=== PATIENT | female | born 1930 | race Caucasian/White ===

== ENCOUNTER 2017-10-21 11:26 | Inpatient (IN) | payer MEDICARE, BC ==
[2017-10-21] MEDS ORDERED: Sodium Chloride 0.9% 500 ML IV SCH ×2 (12:00→13:30)
--- NOTE | 2017-10-21 12:00 | EDM.PDOC ---
ED HPI GENERAL MEDICAL PROBLEM - General Chief Complaint: Respiratory Problem Stated Complaint: SHORTNESS OF BREATH Time Seen by Provider: 10/21/17 11:38 Source of Information: Reports: Patient, Family () History Limitations: Reports: No Limitations - History of Present Illness INITIAL COMMENTS - FREE TEXT/NARRATIVE: PATIENT IS AN 87-YEAR-OLD FEMALE WHO PRESENTS VIA EMS FOR COMPLAINT OF SHORTNESS OF BREATH. PATIENT STATES THAT SHORTNESS OF BREATH, NAUSEA, VOMITING , AND COUGH BEGAN YESTERDAY. PATIENT DENIES CHEST PAIN, ABDOMINAL PAIN, BOWEL CHANGES, OR FEVER. REVIEWED IN PREVIOUS DOCUMENTATION AND DISCUSSED WITH PATIENT IN DEPTH, PATIENT REQUESTS A DO NOT RESUSCITATE STATUS. Onset: Gradual Onset Date: 10/20/17 Duration: Day(s): Location: Reports: Chest Severity: Mild Improves with: Reports: None Worsens with: Reports: None Associated Symptoms: Reports: Cough, Fever/Chills, Nausea/Vomiting, Shortness of Breath - Related Data Allergies Allergy/AdvReac Type Severity Reaction Status Date / Time Iodinated Contrast- Oral and Allergy Severe Nausea and Verified 10/21/17 12:27 IV Dye Vomiting rosuvastatin calcium Allergy Unknown Other Verified 10/21/17 12:27 [From Crestor] Home Meds: Home Meds Omeprazole 20 mg PO DAILY@0700 07/06/15 [History] Sertraline HCl 100 mg PO DAILY 07/06/15 [History] traMADol [Take Home: traMADol 50 MG, 4 Tab Pack] 50 mg PO TID PRN 07/06/15 [ History] Metoprolol Tartrate 25 mg PO BID 07/08/15 [History] amLODIPine [Norvasc] 10 mg PO DAILY #90 tablet 07/09/15 [Rx] Albuterol [Ventolin HFA] 2 puff INH Q4H PRN 08/10/15 [History] Albuterol/Ipratropium [DuoNeb 3.0-0.5 MG/3 ML] 3 ml NEB Q6HRRT 08/10/15 [History ] Budesonide [Pulmicort] 0.5 mg IH BID 08/10/15 [History] Triazolam 0.25 mg PO BEDTIME PRN 08/29/16 [History] Fluticasone/Vilanterol [Breo Ellipta 100-25 MCG Inhalation Kit] 1 puff INH DAILY 10/21/17 [History] Past Medical History HEENT History: Reports: Cataract, Impaired Vision Cardiovascular History: Reports: Hypertension, SOB on Exertion Respiratory History: Reports: COPD, 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: Musculoskeletal History: Reports: Arthritis - Past Surgical History HEENT Surgical History: Reports: Cataract Surgery Neurological Surgical History: Reports: Other (See Below) Social & Family History - Family History Family Medical History: Noncontributory - Tobacco Use Smoking Status *Q: Light Tobacco Smoker Years of Tobacco use: 70 Packs/Tins Daily: 0.5 Used Tobacco, but Quit: No Month Tobacco Last Used: Oct Second Hand Smoke Exposure: No - Caffeine Use Caffeine Use: Reports: Coffee - Recreational Drug Use Recreational Drug Use: No ED ROS GENERAL - Review of Systems Review Of Systems: ROS reveals no pertinent complaints other than HPI. Constitutional: Reports: Chills, Fatigue HEENT: Reports: No Symptoms Respiratory: Reports: Shortness of Breath, Cough Cardiovascular: Reports: No Symptoms Endocrine: Reports: No Symptoms GI/Abdominal: Reports: No Symptoms : Reports: No Symptoms Musculoskeletal: Reports: No Symptoms Skin: Reports: No Symptoms Neurological: Reports: No Symptoms Psychiatric: Reports: No Symptoms Hematologic/Lymphatic: Reports: No Symptoms Immunologic: Reports: No Symptoms ED EXAM, GENERAL - Physical Exam Exam: See Below Exam Limited By: No Limitations General Appearance: Alert, WD/WN, No Apparent Distress Eye Exam: Bilateral Eye: Normal Inspection Nose: Normal Inspection, Normal Mucosa, No Blood Throat/Mouth: Normal Inspection, Normal Oropharynx, No Airway Compromise Head: Atraumatic, Normocephalic Neck: Normal Inspection, Supple, Non-Tender Respiratory/Chest: No Respiratory Distress, Rales, Rhonchi Cardiovascular: Tachycardia GI/Abdominal: Normal Bowel Sounds, Soft, Non-Tender, No Distention, No Mass Back Exam: Normal Inspection. No: CVA Tenderness (L), CVA Tenderness (R) Extremities: Normal Inspection, No Pedal Edema Neurological: Alert, Oriented, Normal Cognition Psychiatric: Normal Affect, Normal Mood Skin Exam: Warm, Dry, Intact, Normal Color, No Rash Lymphatic: No Adenopathy EKG INTERPRETATION EKG Date: 10/21/17 Time: 12:34 Rhythm: Other (SINUS TACHYCARDIA) Rate (Beats/Min): 112 [place]: Normal P-Wave: Present QRS: Normal ST-T: Normal QT: Normal Comparison: Change From Previous EKG EKG Interpretation Comments: SINUS TACHYCARDIA WITH PACS Course - Orders/Labs/Meds Orders: Active Orders 24 hr Category Date Time Status EKG Documentation Completion [RC] ASDIRECTED Care 10/21/17 11:40 Ordered Chest 2V [CR] Stat Exams 10/21/17 11:38 Ordered CBC WITH AUTO DIFF [HEME] Stat Lab 10/21/17 11:38 Ordered COMPREHENSIVE METABOLIC PN,CMP [CHEM] Stat Lab 10/21/17 11:38 Ordered INFLUENZA A+B AG SCREEN [RM] Stat Lab 10/21/17 11:40 Uncollected UA W/MICROSCOPIC [URIN] Stat Lab 10/21/17 11:38 Uncollected EKG 12 Lead [EK] Routine Ther 10/21/17 11:38 Ordered - Radiology Interpretation Free Text/Narrative:: Chest x-ray shows suspected right lower lobe pneumonia - Re-Assessments/Exams Free Text/Narrative Re-Assessment/Exam: 10/21/17 13:41 Patient afebrile, nontoxic appearing. Vital signs stable. Oxygen saturation 92 on 3 L nasal cannula. Patient giving initial dose of Rocephin and Zithromax. Discussed case with Daria Swenson, nurse practitioner from [facility] who will accept inpatient admission and follow. Departure - Departure Time of Disposition: 13:43 Disposition: Admitted As Inpatient 64 Condition: Fair Clinical Impression: Pneumonia Pneumonia Qualifiers: Pneumonia type: due to unspecified organism Laterality: right Lung location: lower lobe of lung Qualified Code(s): J18.1 - Lobar pneumonia, unspecified organism COPD (chronic obstructive pulmonary disease) Qualifiers: COPD type: unspecified COPD Qualified Code(s): J44.9 - Chronic obstructive pulmonary disease, unspecified - Discharge Information Referrals: PCP,Unknown [Primary Care Provider] - Forms: ED Department Discharge - My Orders Last 24 Hours: My Active Orders 10/21/17 11:38 Chest 2V [CR] Stat CBC WITH AUTO DIFF [HEME] Stat COMPREHENSIVE METABOLIC PN,CMP [CHEM] Stat UA W/MICROSCOPIC [URIN] Stat EKG 12 Lead [EK] Routine 10/21/17 11:40 EKG Documentation Completion [RC] ASDIRECTED INFLUENZA A+B AG SCREEN [RM] Stat - Assessment/Plan Last 24 Hours: My Active Orders 10/21/17 11:38 Chest 2V [CR] Stat CBC WITH AUTO DIFF [HEME] Stat COMPREHENSIVE METABOLIC PN,CMP [CHEM] Stat UA W/MICROSCOPIC [URIN] Stat EKG 12 Lead [EK] Routine 10/21/17 11:40 EKG Documentation Completion [RC] ASDIRECTED INFLUENZA A+B AG SCREEN [RM] Stat Assessment:: Pneumonia Plan: Inpatient admission to [facility]
[2017-10-21] MEDS ORDERED: cefTRIAXone 1 GM Vial IVPUSH ONE (13:37)
[2017-10-21] MEDS ORDERED: Azithromycin 500 MG in Sodium Chloride 0.9% 250 ML IV ONE (13:38)
--- NOTE | 2017-10-21 14:50 | PCM.HP ---
H&P History of Present Illness - General Date of Service: 10/21/17 Admit Problem/Dx: Admission Diagnosis/Problem Admission Diagnosis/Problem Pneumonia Source of Information: Patient, Old Records, Provider, RN History Limitations: Reports: No Limitations - History of Present Illness Initial Comments - Free Text/Narative: This is an 87 year old female who presented to the ER today via ambulance with complaints of cough and shortness of breath. The patient reports the symptoms started 2 days ago and have progressively worsened. Associated chest tightness, nausea and vomiting. Denies fever, chills, or abdominal pain. The patient's medical history is significant for panlobular emphysema, oxygen dependent, hypertension, hyperlipidemia, anxiety and depression, GERD, osteoporosis, macular degeneration, and breast cancer with left mastectomy. The patient lives alone, but reports she has children that check on her. She had workup performed in the ER indicative of a right lower lobe pneumonia with an elevated white blood cell count. She was admitted for treatment of this and further monitoring. - Related Data Allergies/Adverse Reactions: Allergies Allergy/AdvReac Type Severity Reaction Status Date / Time Iodinated Contrast- Oral and Allergy Severe Nausea and Verified 10/21/17 12:27 IV Dye Vomiting rosuvastatin calcium Allergy Unknown Other Verified 10/21/17 12:27 [From Crestor] Home Medications: Home Meds Omeprazole 20 mg PO DAILY@0700 07/06/15 [History] Sertraline HCl 100 mg PO DAILY 07/06/15 [History] traMADol [Take Home: traMADol 50 MG, 4 Tab Pack] 50 mg PO TID PRN 07/06/15 [ History] Metoprolol Tartrate 25 mg PO BID 07/08/15 [History] amLODIPine [Norvasc] 10 mg PO DAILY #90 tablet 07/09/15 [Rx] Albuterol [Ventolin HFA] 2 puff INH Q4H PRN 08/10/15 [History] Albuterol/Ipratropium [DuoNeb 3.0-0.5 MG/3 ML] 3 ml NEB Q6HRRT PRN 08/10/15 [ History] Budesonide [Pulmicort] 0.5 mg IH BID 08/10/15 [History] Triazolam 0.25 mg PO BEDTIME PRN 08/29/16 [History] Fluticasone/Vilanterol [Breo Ellipta 100-25 MCG Inhalation Kit] 1 puff INH DAILY 10/21/17 [History] Past Medical History HEENT History: Reports: Cataract, Impaired Vision Cardiovascular History: Reports: Hypertension, SOB on Exertion Respiratory History: Reports: COPD, SOB Gastrointestinal History: Reports: None 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: Musculoskeletal History: Reports: Arthritis Psychiatric History: Reports: Depression Hematologic History: Reports: Blood Transfusion(s) Immunologic History: Reports: Immunosuppression Oncologic (Cancer) History: Reports: Breast - Infectious Disease History Infectious Disease History: Reports: Chicken Pox, Measles, Mumps - Past Surgical History HEENT Surgical History: Reports: Cataract Surgery Cardiovascular Surgical History: Reports: None Respiratory Surgical History: Reports: None GI Surgical History: Reports: Appendectomy, Cholecystectomy, Colonoscopy Female Surgical History: Reports: Hysterectomy, Other (See Below) Other Female Surgeries/Procedures: bladder tuck Neurological Surgical History: Reports: Other (See Below) Oncologic Surgical History: Reports: Mastectomy Other Oncologic Surgeries/Procedures: left side Social & Family History - Family History Family Medical History: Noncontributory - Tobacco Use Smoking Status *Q: Light Tobacco Smoker Years of Tobacco use: 70 Packs/Tins Daily: 0.5 Used Tobacco, but Quit: No Month Tobacco Last Used: Oct Second Hand Smoke Exposure: No - Caffeine Use Caffeine Use: Reports: Coffee - Recreational Drug Use Recreational Drug Use: No H&P Review of Systems - Review of Systems: Review Of Systems: See Below General: Reports: Fever, Weakness, Fatigue, Decreased Appetite. Denies: Chills HEENT: Reports: Glasses, Headaches (intermittently). Denies: Ear Pain (ear popping), Sinus Congestion, Sore Throat Pulmonary: Reports: Shortness of Breath, Cough, Sputum, Other (chest tightness) . Denies: Wheezing Cardiovascular: Reports: Dyspnea on Exertion. Denies: Chest Pain, Edema, Lightheadedness Gastrointestinal: Reports: Abdominal Pain (RUQ), Decreased Appetite, Nausea, Vomiting. Denies: Constipation, Diarrhea Genitourinary: Denies: Dysuria, Frequency Neurological: Reports: Headache. Denies: Dizziness Exam - Exam Exam: See Below - Vital Signs Vital Signs: Last Vital Signs Temp 101.1 F H 10/21/17 13:45 Pulse 120 H 10/21/17 13:45 Resp 22 H 10/21/17 13:45 BP 154/75 H 10/21/17 13:45 Pulse Ox 92 L 10/21/17 13:45 Weight: 102 lb - Exam Quality Assessment: Supplemental Oxygen (5 liters per nasal cannula at 92%), DVT Prophylaxis (Will place on lovenox for score of 3). No: Urinary Catheter General: Alert, Oriented, Cooperative, Mild Distress HEENT: Conjunctiva Clear, Hearing Intact, Posterior Pharynx Clear. No: Mucosa Moist & [place] (extremely dry), TMs Clear (mild effusion to bilateral TMs, minimal cerumen in external canal) Neck: Supple Lungs: Decreased Breath Sounds (throughout lung murry), Crackles (RLL), Other ( tachypnea, mild). No: Wheezing Cardiovascular: Regular Rhythm, Normal S1, Normal S2, Tachycardia (110s) GI/Abdominal Exam: Normal Bowel Sounds, Soft, No Distention, No Mass, Tender ( RUQ-no gallbladder present per patient) Extremities: No Pedal Edema Skin: Warm, Dry Neurological: Normal Speech Neuro Extensive - Mental Status: Alert, Oriented x3 Psychiatric: Alert, Normal Affect, Anxious - Patient Data Lab Results Last 24 hrs: Laboratory Results - last 24 hr 10/21/17 Range/Units 13:47 Specimen Type Urinqcath Urine Color Yellow (YELLOW) Urine Appearance Slightly cloudy H (CLEAR) Urine pH 5.5 (5.0-9.0) Ur Specific [place] 1.025 (1.005-1.030) Urine Protein >=300 H (NEGATIVE) mg/dL Urine Glucose (UA) Negative (NEGATIVE) mg/dL Urine Ketones 15 H (NEGATIVE) mg/dL Urine Occult Blood Moderate H (NEGATIVE) Urine Nitrite Positive H (NEGATIVE) Urine Bilirubin Negative (NEGATIVE) Urine Urobilinogen 0.2 (0.2-1.0) E.U./dL Ur Leukocyte Esterase Negative (NEGATIVE) Urine RBC 0-5 /HPF Urine WBC 5-10 H /HPF Ur Epithelial Cells Few /LPF Urine Bacteria Many H (NONE TO FEW) /HPF Urine Yeast Few H (NEGATIVE) /HPF Result Diagrams: 10/21/17 11:51 10/21/17 11:51 EKG INTERPRETATION EKG Date: 10/21/17 Time: 12:33 Rhythm: Other (sinus tachycardia) Rate (Beats/Min): 112 [place]: Normal P-Wave: Present QRS: Normal ST-T: Normal QT: Normal Comparison: Change From Previous EKG EKG Interpretation Comments: PACs new finding *Q Meaningful Use (ADM) - VTE *Q VTE Criteria *Q: - Stroke *Q Stroke Criteria *Q: - AMI *Q AMI Criteria *Q: Problem List Initiated/Reviewed/Updated: Yes Orders Last 24hrs: Active Orders 24 hr Category Date Time Status Incentive Spirometry [RT Incentive Spirometry] [RC] Care 10/21/17 14:39 Ordered ASDIRECTED Intake and Output [RC] 1400,2200,0600 Care 10/21/17 14:37 Ordered RT Aerosol Therapy [RC] ASDIRECTED Care 10/21/17 14:38 Ordered Up With Assistance [RC] ASDIRECTED Care 10/21/17 14:36 Ordered Heart Healthy Diet [DIET] Diet 10/21/17 Dinner Ordered CULTURE BLOOD [BC] Stat Lab 10/21/17 14:38 Ordered CULTURE BLOOD [BC] Stat Lab 10/21/17 14:38 Ordered CULTURE SPUTUM + SMEAR [RM] Routine Lab 10/21/17 14:38 Uncollected CULTURE URINE [RM] Routine Lab 10/21/17 14:34 Uncollected Albuterol/Ipratropium [DuoNeb 3.0-0.5 MG/3 ML] Med 10/21/17 17:00 Ordered 3 ml NEB Q6HRRT Azithromycin [Zithromax] 500 mg Med 10/22/17 14:45 Ordered Sodium Chloride 0.9% [Normal Saline] 250 ml IV Q24H Budesonide [Pulmicort] Med 10/21/17 21:00 Ordered 0.5 mg INH BID Fluticasone/Vilanterol Med 10/22/17 09:00 Ordered 1 puff INH DAILY Metoprolol Tartrate [Lopressor] Med 10/21/17 21:00 Ordered 25 mg PO BID Omeprazole Med 10/22/17 07:00 Ordered 20 mg PO DAILY@0700 Sertraline HCl [Sertraline HCl] Med 10/22/17 09:00 Ordered 100 mg PO DAILY Sodium Chloride 0.9% @ 75 MLS/HR(1000ml) Med 10/21/17 14:45 Ordered Sodium Chloride 0.9% [Normal Saline] 1,000 ml IV ASDIRECTED Triazolam [Triazolam] Med 10/21/17 14:40 Ordered 0.25 mg PO BEDTIME PRN amLODIPine [Norvasc] Med 10/22/17 09:00 Ordered 10 mg PO DAILY cefTRIAXone [Rocephin] Med 10/22/17 14:45 Ordered 1 gm IVPUSH Q24H traMADol [Ultram] Med 10/21/17 14:40 Ordered 50 mg PO TID PRN Blood Culture x2 Reflex Set [OM.PC] Stat Oth 10/21/17 14:38 Ordered Medication Orders Albuterol/Ipratropium (Duoneb 3.0-0.5 Mg/3 Ml) 3 ml NEB Q6HRRT [facility] Amlodipine Besylate (Norvasc) 10 mg PO DAILY [facility] Budesonide (Pulmicort) 0.5 mg INH BID [facility] Ceftriaxone Sodium (Rocephin) 1 gm IVPUSH Q24H [facility] Sodium Chloride (Normal Saline) 500 mls @ 500 mls/hr IV ASDIRECTED [facility]STAL Last Admin: 10/21/17 12:16 Dose: 500 mls/hr Sodium Chloride (Normal Saline) 500 mls @ 500 mls/hr IV .BOLUS CRYSTAL Last Admin: 10/21/17 13:29 Dose: 500 mls/hr Azithromycin 500 mg/ Sodium (Chloride) 250 mls @ 250 mls/hr IV Q24H [facility] Sodium Chloride (Normal Saline) 1,000 mls @ 75 mls/hr IV ASDIRECTED [facility] Metoprolol Tartrate (Lopressor) 25 mg PO BID [facility] Non-Formulary Medication (Fluticasone/Vilanterol) 1 puff INH DAILY [facility] Non-Formulary Medication (Sertraline Hcl [Sertraline Hcl]) 100 mg PO DAILY [facility] Non-Formulary Medication (Triazolam [Triazolam]) 0.25 mg PO BEDTIME PRN PRN Reason: Insomnia Omeprazole (Omeprazole) 20 mg PO DAILY@0700 [facility] Tramadol HCl (Ultram) 50 mg PO TID PRN PRN Reason: Pain Assessment/Plan Comment:: PRIMARY ASSESSMENT/PLAN: Community acquired right lower lobe pneumonia. Chest x-ray demonstrated "right lower lobe parenchymal opacification superimposed on advanced changes of chronic obstructive disease." WBC 15.3 with left shift. Influenza negative. Given underlying emphysema and possible pseuduomonas risk will change antibiotic to levaquin 750 mg IV every 48 hours due to CrCl of 31. DuoNebs QID. Incentive spirometry. Oxygen to keep saturations >90%. Sputum and blood cultures x 2 ordered. Lactic acid pending. qSOFA score 2-high risk. CBC in AM. Panlobular emphysema. Does not appear to be in acute exacerbation of this. No wheezing at this time, so will hold off on steroids. Continue Breo Ellipta daily and pulmicort BID. Chronic 02 therapy. Dehydration, moderate. Na 130, creatinine 0.89, BUN 23. Has received 2 500 mL normal saline boluses in ER. Will continue NS at 75 mL/hr. Accurate I & O. Repeat BMP in AM. Sinus tachycardia. Place on telemetry for monitoring. Most likely related to dehydration and fever. Asymptomatic bacteruria. UA revealed moderate blood, nitrites and many bacteria along with yeast. Urine culture pending. SECONDARY ASSESSMENT/PLAN: Hypertension. Continue norvasc and lopressor. History of hyperlipidemia. Not on medication for this. LDL 89 (2015). Anxiety and depression. Continue zoloft. GERD. Continue omeprazole. History of osteoporosis. Macular degeneration. History of breast cancer, s/p left mastectomy. Chronic low back pain. Diffuse DJD/osteoarthritis. Tramadol PRN. Insomnia, primary. Continue triazolam PRN. DVT prophylaxis. Start lovenox. Overall treatment plan: Monitor heart rate and rhythm with cardiac monitoring. Continue with IV fluids, antibiotics, and nebulizers. Continue to monitor for declining respiratory status and/or hemodynamic instability.
[2017-10-21] MEDS: Sodium Chloride 0.9% 1,000 ML IV SCH ×2 (16:17→21:27)
[2017-10-21] MEDS: Enoxaparin 30 MG/0.3 ML Syringe SUBCUT SCH (16:19)
[2017-10-21] MEDS: Albuterol/Ipratropium 3.0-0.5 MG/3 ML Neb Soln NEB SCH ×2 (17:17→22:47)
[2017-10-21] MEDS: traMADol 50 MG Tab PO PRN (21:21)
[2017-10-21] MEDS: Budesonide 0.5 MG/2 ML Neb Susp INH SCH (21:21)
[2017-10-21] MEDS: Metoprolol Tartrate 25 MG Tab PO SCH (21:22)
[2017-10-22] MEDS: Albuterol/Ipratropium 3.0-0.5 MG/3 ML Neb Soln NEB SCH ×4 (06:07→22:33)
[2017-10-22] MEDS ORDERED: Omeprazole 20 MG Cap.CR PO SCH (07:00)
[2017-10-22] MEDS: Budesonide 0.5 MG/2 ML Neb Susp INH SCH ×2 (07:46→20:24)
[2017-10-22 07:56] LABS: CHLORIDE,CL 101 mmol/L (98-115); SODIUM,NA 136 mmol/L (136-145)
[2017-10-22] MEDS: Piperacillin/Tazobactam/Dext 3.375 GM in Premix Bag 1 BAG IV SCH ×3 (08:07→20:24)
[2017-10-22] MEDS: Enoxaparin 30 MG/0.3 ML Syringe SUBCUT SCH (08:09)
[2017-10-22] MEDS: VILANTEROL IH SCH (08:09)
[2017-10-22] MEDS: [UNRECOGNIZED DRUG - OTHER] IH SCH (08:09)
[2017-10-22] MEDS: amLODIPine 5 MG Tab PO SCH (08:10)
[2017-10-22] MEDS: Metoprolol Tartrate 25 MG Tab PO SCH ×2 (08:10→20:24)
[2017-10-22] MEDS: Sertraline 50 MG Tab PO SCH (08:10)
[2017-10-22] MEDS ORDERED: Levofloxacin/Dextrose 5%-Water 250 MG in Premix Bag 1 BAG IV SCH ×4 (09:00)
[2017-10-22] MEDS ORDERED: Levofloxacin/Dextrose 5%-Water 500 MG in Premix Bag 1 BAG IV SCH ×4 (09:00)
--- NOTE | 2017-10-22 10:35 | PCM.PN ---
- General Info Date of Service: 10/22/17 Subjective Update: Patient reports she feels about the same as yesterday. Functional Status: Reports: Pain Controlled, Tolerating Diet, Ambulating, Urinating, Incentive Spirometry - Review of Systems General: Reports: Weakness, Fatigue, Malaise. Denies: Fever, Chills HEENT: Reports: Glasses, Sinus Congestion. Denies: Headaches Pulmonary: Reports: Pleuritic Chest Pain, Cough, Sputum. Denies: Shortness of Breath, Wheezing Cardiovascular: Reports: Dyspnea on Exertion. Denies: Chest Pain, Edema, Lightheadedness Gastrointestinal: Reports: Nausea. Denies: Abdominal Pain, Diarrhea, Vomiting Neurological: Denies: Headache Psychiatric: Reports: Anxiety - Patient Data Vitals - Most Recent: Last Vital Signs Temp 98.4 F 10/22/17 06:23 Pulse 114 H 10/22/17 08:10 Resp 32 H 10/22/17 06:23 BP 157/82 H 10/22/17 08:10 Pulse Ox 94 L 10/22/17 07:50 Weight - Most Recent: 102 lb I&O - Last 24 Hours: Intake & Output 10/21/17 10/22/17 10/22/17 22:59 06:59 14:59 Intake Total 1384 809 Balance 1384 809 Lab Results Last 24 Hours: Laboratory Results - last 24 hr 10/21/17 10/21/17 10/22/17 Range/Units 13:47 15:40 07:25 WBC 14.0 H (5.0-10.0) 10^3/uL RBC 3.71 L (3.80-5.50) 10^6/uL Hgb 10.1 L (12.0-16.0) g/dL Hct 32.4 L (37.0-47.0) % MCV 87.1 (82.0-92.0) fL MCH 27.2 (27.0-31.0) pg MCHC 31.2 L (32.0-36.0) g/dL RDW 13.3 (11.5-14.5) % Plt Count 307 H (150-300) 10^3/uL MPV 8.6 (7.4-10.4) fL Neut % (Auto) 83.5 H (50.0-70.0) % Lymph % (Auto) 8.0 L (20.0-40.0) % [place] % (Auto) 7.7 (2.0-8.0) % Eos % (Auto) 0.3 L (1.0-3.0) % Baso % (Auto) 0.5 (0.0-1.0) % Neut # (Auto) 11.7 H (2.5-7.0) 10^3/uL Lymph # (Auto) 1.1 (1.0-4.0) 10^3/uL [place] # (Auto) 1.1 H (0.1-0.8) 10^3/uL Eos # (Auto) 0.0 L (0.1-0.3) 10^3/uL Baso # (Auto) 0.1 (0.0-0.1) 10^3/uL Sodium (136-145) mmol/L Potassium (3.3-5.3) mmol/L Chloride (98-115) mmol/L Carbon Dioxide (21.0-32.0) mmol/L BUN (6-25) mg/dL Creatinine (0.51-1.17) mg/dL Est Cr Clr Drug Dosing mL/min Estimated GFR (MDRD) mL/min Glucose (70-110) mg/dL Lactic Acid 1.6 (0.4-2.0) mmol/L Calcium (8.7-10.3) mg/dL Specimen Type [place] Urine Color Yellow (YELLOW) Urine Appearance Slightly cloudy H (CLEAR) Urine pH 5.5 (5.0-9.0) Ur Specific [place] 1.025 (1.005-1.030) Urine Protein >=300 H (NEGATIVE) mg/dL Urine Glucose (UA) Negative (NEGATIVE) mg/dL Urine Ketones 15 H (NEGATIVE) mg/dL Urine Occult Blood Moderate H (NEGATIVE) Urine Nitrite Positive H (NEGATIVE) Urine Bilirubin Negative (NEGATIVE) Urine Urobilinogen 0.2 (0.2-1.0) E.U./dL Ur Leukocyte Esterase Negative (NEGATIVE) Urine RBC 0-5 /HPF Urine WBC 5-10 H /HPF Ur Epithelial Cells Few /LPF Urine Bacteria Many H (NONE TO FEW) /HPF Urine Yeast Few H (NEGATIVE) /HPF 10/22/17 Range/Units 07:25 WBC (5.0-10.0) 10^3/uL RBC (3.80-5.50) 10^6/uL Hgb (12.0-16.0) g/dL Hct (37.0-47.0) % MCV (82.0-92.0) fL MCH (27.0-31.0) pg MCHC (32.0-36.0) g/dL RDW (11.5-14.5) % Plt Count (150-300) 10^3/uL MPV (7.4-10.4) fL Neut % (Auto) (50.0-70.0) % Lymph % (Auto) (20.0-40.0) % [place] % (Auto) (2.0-8.0) % Eos % (Auto) (1.0-3.0) % Baso % (Auto) (0.0-1.0) % Neut # (Auto) (2.5-7.0) 10^3/uL Lymph # (Auto) (1.0-4.0) 10^3/uL [place] # (Auto) (0.1-0.8) 10^3/uL Eos # (Auto) (0.1-0.3) 10^3/uL Baso # (Auto) (0.0-0.1) 10^3/uL Sodium 136 (136-145) mmol/L Potassium 3.4 (3.3-5.3) mmol/L Chloride 101 (98-115) mmol/L Carbon Dioxide 19.6 L (21.0-32.0) mmol/L BUN 16 (6-25) mg/dL Creatinine 0.64 (0.51-1.17) mg/dL Est Cr Clr Drug Dosing 43.53 mL/min Estimated GFR (MDRD) > 60 mL/min Glucose 137 H (70-110) mg/dL Lactic Acid (0.4-2.0) mmol/L Calcium 8.1 L (8.7-10.3) mg/dL Specimen Type Urine Color (YELLOW) Urine Appearance (CLEAR) Urine pH (5.0-9.0) Ur Specific [place] (1.005-1.030) Urine Protein (NEGATIVE) mg/dL Urine Glucose (UA) (NEGATIVE) mg/dL Urine Ketones (NEGATIVE) mg/dL Urine Occult Blood (NEGATIVE) Urine Nitrite (NEGATIVE) Urine Bilirubin (NEGATIVE) Urine Urobilinogen (0.2-1.0) E.U./dL Ur Leukocyte Esterase (NEGATIVE) Urine RBC /HPF Urine WBC /HPF Ur Epithelial Cells /LPF Urine Bacteria (NONE TO FEW) /HPF Urine Yeast (NEGATIVE) /HPF [place] Results Last 24 Hours: Microbiology 10/21/17 16:35 Gram Stain - Final Sputum - Expectorated Med Orders - Current: Current Medications Albuterol/Ipratropium (Duoneb 3.0-0.5 Mg/3 Ml) 3 ml NEB Q6HRRT [facility] Last Admin: 10/22/17 06:07 Dose: 3 ml Amlodipine Besylate (Norvasc) 10 mg PO DAILY [facility] Last Admin: 10/22/17 08:10 Dose: 10 mg Budesonide (Pulmicort) 0.5 mg INH BIDRT [facility] Last Admin: 10/22/17 07:46 Dose: 0.5 mg Calcium Carbonate/Glycine (Tums) 500 mg PO BID [facility] Enoxaparin Sodium (Lovenox) 30 mg SUBCUT DAILY [facility] Last Admin: 10/22/17 08:09 Dose: 30 mg Sodium Chloride (Normal Saline) 500 mls @ 500 mls/hr IV ASDIRECTED [facility] Last Admin: 10/21/17 12:16 Dose: 500 mls/hr Sodium Chloride (Normal Saline) 500 mls @ 500 mls/hr IV .BOLUS [facility] Last Admin: 10/21/17 13:29 Dose: 500 mls/hr Sodium Chloride (Normal Saline) 1,000 mls @ 75 mls/hr IV ASDIRECTED [facility] Last Admin: 10/21/17 21:27 Dose: 75 mls/hr Levofloxacin/Dextrose 250 mg/ (Premix) 50 mls @ 50 mls/hr IV Q48H [facility] Last Admin: 10/22/17 09:40 Dose: 50 mls/hr Levofloxacin/Dextrose 500 mg/ (Premix) 100 mls @ 100 mls/hr IV Q48H [facility] Piperacillin/Tazobactam/ (Dextrose 3.375 gm/ Premix) 50 mls @ 100 mls/hr IV Q6H [facility] Last Admin: 10/22/17 08:07 Dose: 100 mls/hr Methylprednisolone Sodium Succinate (Solu-Medrol) 60 mg IVPUSH DAILY [facility] Metoprolol Tartrate (Lopressor) 25 mg PO BID [facility] Last Admin: 10/22/17 08:10 Dose: 25 mg Omeprazole (Omeprazole) 20 mg PO DAILY@0700 [facility] Last Admin: 10/22/17 06:07 Dose: 20 mg Sertraline HCl (Zoloft) 100 mg PO DAILY [facility] Last Admin: 10/22/17 08:10 Dose: 100 mg Tramadol HCl (Ultram) 50 mg PO TID PRN PRN Reason: Pain Last Admin: 10/21/17 21:21 Dose: 50 mg Triazolam (Triazolam) 0.25 mg PO BEDTIME PRN PRN Reason: INSOMNIA Last Admin: 10/21/17 21:21 Dose: 0.25 mg Discontinued Medications Ceftriaxone Sodium (Rocephin) 1 gm IVPUSH ONETIME ONE Stop: 10/21/17 13:38 Last Admin: 10/21/17 13:56 Dose: 1 gm Ceftriaxone Sodium (Rocephin) 1 gm IVPUSH Q24H [facility] Azithromycin 500 mg/ Sodium (Chloride) 250 mls @ 250 mls/hr IV ONETIME ONE Stop: 10/21/17 14:37 Last Admin: 10/21/17 14:32 Dose: 250 mls/hr Azithromycin 500 mg/ Sodium (Chloride) 250 mls @ 250 mls/hr IV Q24H [facility] Levofloxacin/Dextrose 250 mg/ (Premix) 50 mls @ 50 mls/hr IV Q24H [facility] Levofloxacin/Dextrose 500 mg/ (Premix) 100 mls @ 100 mls/hr IV Q24H [facility] - Exam Quality Assessment: Supplemental Oxygen (5 liters per nasal cannula 90%), DVT Prophylaxis (Lovenox). No: Urine Catheter General: Alert, Oriented, Cooperative, Mild Distress Lungs: Decreased Breath Sounds (throughout), Crackles (coarse crackles throughout except [place]), Wheezing (RLL), Other (effort mildly labored with retractions) Cardiovascular: Regular Rhythm, No Murmurs, Tachycardia (100s) GI/Abdominal Exam: Normal Bowel Sounds, Soft, Non-Tender, No Distention, No Mass Extremities: No Pedal Edema Skin: Warm, Dry Neurological: Normal Speech Psy/Mental Status: Alert, Normal Affect, Anxious - Problem List Review Problem List Initiated/Reviewed/Updated: Yes - My Orders Last 24 Hours: My Active Orders 10/23/17 05:11 CBC WITH AUTO DIFF [HEME] AM COMPREHENSIVE METABOLIC PN,CMP [CHEM] AM 10/21/17 13:47 CULTURE URINE [RM] Routine 10/21/17 14:36 Up With Assistance [RC] ASDIRECTED 10/21/17 14:37 Intake and Output [RC] 1400,2200,0600 10/21/17 14:38 RT Aerosol Therapy [RC] ASDIRECTED Blood Culture x2 Reflex Set [OM.PC] Stat 10/21/17 14:39 Incentive Spirometry [RT Incentive Spirometry] [RC] ASDIRECTED 10/21/17 14:40 traMADol [Ultram] 50 mg PO TID PRN 10/21/17 14:45 Sodium Chloride 0.9% [Normal Saline] 1,000 ml IV ASDIRECTED 10/21/17 15:00 Enoxaparin [Lovenox] 30 mg SUBCUT DAILY Triazolam 0.25 mg PO BEDTIME PRN 10/21/17 15:13 Telemetry Monitoring [Cardiac Monitoring] [RC] 0700,1100,1500,1900,2300,0300 10/21/17 15:40 CULTURE BLOOD [BC] Stat 10/21/17 16:00 CULTURE BLOOD [BC] Stat 10/21/17 16:35 CULTURE SPUTUM + SMEAR [RM] Routine 10/21/17 17:00 Albuterol/Ipratropium [DuoNeb 3.0-0.5 MG/3 ML] 3 ml NEB Q6HRRT 10/21/17 20:00 Budesonide [Pulmicort] 0.5 mg INH BIDRT 10/21/17 21:00 Metoprolol Tartrate [Lopressor] 25 mg PO BID 10/21/17 Dinner Heart Healthy Diet [DIET] 10/22/17 07:00 Omeprazole 20 mg PO DAILY@0700 10/22/17 07:25 CRP [C-REACTIVE PROTEIN] [CHEM] Routine 10/22/17 09:00 Fluticasone/Vilanterol [Breo Ellipta 100-25 MCG Inhalation Kit] 0 each IH DAILY Levofloxacin/Dextrose 5%-Water [Levaquin in D5W 250 MG/50 ML] 250 mg Premix Bag 1 bag IV Q48H Levofloxacin/Dextrose 5%-Water [Levaquin in D5W 500 MG/100 ML] 500 mg Premix Bag 1 bag IV Q48H Piperacillin/Tazobactam/Dext [Zosyn in Dextrose Iso-Osmotic 3.375 GM] 3.375 gm Premix Bag 1 bag IV Q6H Sertraline [Zoloft] 100 mg PO DAILY amLODIPine [Norvasc] 10 mg PO DAILY 10/22/17 10:15 Calcium Carbonate [Tums] 500 mg PO BID methylPREDNISolone Sod Succ [Solu-MEDROL] 60 mg IVPUSH DAILY - Plan Plan:: PRIMARY ASSESSMENT/PLAN: Community acquired right lower lobe pneumonia, present on admission, pseudomonas risk. WBC improved slightly to 14.0 with left shift. Continue levaquin 750 mg IV q48 hours. Initiate zosyn 3.375 gm IV every 6 hours. Continue duonebs and incentive spirometry. Continue oxygen. Sputum culture pending, gram stain reveals gram + cocci with yeast. Blood cultures pending. Lactic acid 1.6. CRP pending. CURB score 2-moderate risk. qSOFA score 1-not high risk. CBC in AM. Panlobular emphysema with acute exacerbation. Add solumedrol 60 mg IV daily. Continue Breo Ellipta and pulmicort BID. Chronic 02 therapy. Requiring increased need at present. Dehydration, moderate, improving. Na 136, creatinine 0.64. Continue NS at 75 mL/ hr. Accurate I & O. Repeat CMP in AM. Sinus tachycardia, slight improvement. Continue telemetry. Will wait until afternoon to adjust her lopressor dose. BP adequate at present. She is afebrile and hydration status is improving. Asymptomatic bacteruria. UA revealed moderate blood, nitrites and many bacteria along with yeast. Urine culture pending. Hypocalcemia. Corrected calcium 8.2. Add calcium carbonate 500 mg BID. CMP in AM. SECONDARY ASSESSMENT/PLAN: Hypertension. Continue norvasc and lopressor. Due to tachycardia and adequate BP will not adjust lopressor dose at this time. History of hyperlipidemia. Not on medication for this. LDL 89 (2015). Anxiety and depression. Continue zoloft. GERD. Continue omeprazole. History of osteoporosis. Macular degeneration. History of breast cancer, s/p left mastectomy. Chronic low back pain. Diffuse DJD/osteoarthritis. Tramadol PRN. Insomnia, primary. Continue triazolam PRN. DVT prophylaxis. On lovenox. Overall treatment plan: Continue IV fluids and antibiotics. Adding IV solumedrol today. Continue to monitor hemodynamic and respiratory status.
[2017-10-22] MEDS: Calcium Carbonate 500 MG Tab.Chew PO SCH ×2 (10:58→20:24)
[2017-10-22] MEDS: methylPREDNISolone Sodium Succinate 125 MG/2 ML SDV IVPUSH SCH (10:58)
[2017-10-22] MEDS ORDERED: Ondansetron 4 MG/2 ML SDV IVPUSH ONE (12:45)
[2017-10-22] MEDS ORDERED: Azithromycin 500 MG in Sodium Chloride 0.9% 250 ML IV SCH (13:00)
[2017-10-22] MEDS: Acetaminophen 325 MG Tab PO PRN (13:02)
[2017-10-22] MEDS: Sodium Chloride 0.9% 1,000 ML IV SCH (13:04)
[2017-10-22] MEDS ORDERED: cefTRIAXone 1 GM Vial IVPUSH SCH (14:00)
[2017-10-22] MEDS: traMADol 50 MG Tab PO PRN (20:33)
[2017-10-23] MEDS: Piperacillin/Tazobactam/Dext 3.375 GM in Premix Bag 1 BAG IV SCH ×4 (03:01→20:21)
[2017-10-23] MEDS: Sodium Chloride 0.9% 1,000 ML IV SCH ×2 (03:01→22:21)
[2017-10-23] MEDS: Albuterol/Ipratropium 3.0-0.5 MG/3 ML Neb Soln NEB SCH ×4 (06:30→22:30)
[2017-10-23] MEDS: Budesonide 0.5 MG/2 ML Neb Susp INH SCH ×2 (07:57→20:19)
[2017-10-23] MEDS: Pantoprazole 40 MG Vial IVPUSH SCH (08:05)
[2017-10-23 08:10] LABS: CHLORIDE,CL 100 mmol/L (98-115); SODIUM,NA 134 mmol/L (136-145)
[2017-10-23] MEDS: VILANTEROL IH SCH (08:11)
[2017-10-23] MEDS: [UNRECOGNIZED DRUG - OTHER] IH SCH (08:11)
[2017-10-23] MEDS: amLODIPine 5 MG Tab PO SCH (08:12)
[2017-10-23] MEDS: Enoxaparin 30 MG/0.3 ML Syringe SUBCUT SCH (08:12)
[2017-10-23] MEDS: Metoprolol Tartrate 25 MG Tab PO SCH ×2 (08:13→20:28)
[2017-10-23] MEDS: methylPREDNISolone Sodium Succinate 125 MG/2 ML SDV IVPUSH SCH (08:14)
[2017-10-23] MEDS: Calcium Carbonate 500 MG Tab.Chew PO SCH ×2 (08:14→20:17)
[2017-10-23] MEDS: Sertraline 50 MG Tab PO SCH (08:14)
[2017-10-23] MEDS ORDERED: Ondansetron 4 MG/2 ML SDV IVPUSH PRN (10:04)
[2017-10-23] MEDS ORDERED: Metoprolol Tartrate 25 MG Tab PO ONE (10:05)
--- NOTE | 2017-10-23 10:39 | PCM.PN ---
- General Info Date of Service: 10/23/17 Subjective Update: Patient reports she is feeling some better. Her main reported symptom is intermittent generalized abdominal aching with nausea. She had a one time dose of zofran yesterday with some relief. Functional Status: Reports: Tolerating Diet, Urinating, Incentive Spirometry - Review of Systems General: Reports: Weakness, Fatigue, Malaise. Denies: Fever, Chills HEENT: Reports: Glasses. Denies: Headaches Pulmonary: Reports: Shortness of Breath (improving), Cough, Sputum (green phlegm ). Denies: Pleuritic Chest Pain Cardiovascular: Denies: Chest Pain, Edema Gastrointestinal: Reports: Abdominal Pain (intermittent, generalized), Decreased Appetite, Nausea. Denies: Constipation, Diarrhea, Vomiting Neurological: Denies: Headache Psychiatric: Denies: Anxiety - Patient Data Vitals - Most Recent: Last Vital Signs Temp 98.2 F 10/23/17 06:34 Pulse 114 H 10/23/17 08:13 Resp 26 H 10/23/17 06:34 BP 152/75 H 10/23/17 08:13 Pulse Ox 92 L 10/23/17 06:34 Weight - Most Recent: 102 lb I&O - Last 24 Hours: Intake & Output 10/22/17 10/23/17 10/23/17 22:59 06:59 14:59 Intake Total 1126 664 Output Total 900 Balance 1126 -236 Lab Results Last 24 Hours: Laboratory Results - last 24 hr 10/22/17 10/23/17 10/23/17 Range/Units 07:25 07:20 07:20 WBC 14.7 H (5.0-10.0) 10^3/uL RBC 3.44 L (3.80-5.50) 10^6/uL Hgb 9.7 L (12.0-16.0) g/dL Hct 29.8 L (37.0-47.0) % MCV 86.8 (82.0-92.0) fL MCH 28.1 (27.0-31.0) pg MCHC 32.4 (32.0-36.0) g/dL RDW 13.5 (11.5-14.5) % Plt Count 342 H (150-300) 10^3/uL MPV 8.5 (7.4-10.4) fL Neut % (Auto) 85.6 H (50.0-70.0) % Lymph % (Auto) 7.5 L (20.0-40.0) % [place] % (Auto) 6.3 (2.0-8.0) % Eos % (Auto) 0.1 L (1.0-3.0) % Baso % (Auto) 0.5 (0.0-1.0) % Neut # (Auto) 12.6 H (2.5-7.0) 10^3/uL Lymph # (Auto) 1.1 (1.0-4.0) 10^3/uL [place] # (Auto) 0.9 H (0.1-0.8) 10^3/uL Eos # (Auto) 0.0 L (0.1-0.3) 10^3/uL Baso # (Auto) 0.1 (0.0-0.1) 10^3/uL Sodium 134 L (136-145) mmol/L Potassium 3.7 (3.3-5.3) mmol/L Chloride 100 (98-115) mmol/L Carbon Dioxide 23.7 (21.0-32.0) mmol/L BUN 11 (6-25) mg/dL Creatinine 0.66 (0.51-1.17) mg/dL Est Cr Clr Drug Dosing 42.21 mL/min Estimated GFR (MDRD) > 60 mL/min Glucose 163 H (70-110) mg/dL Calcium 8.5 L (8.7-10.3) mg/dL Total Bilirubin 0.5 (0.2-1.0) mg/dL AST 45 H (15-37) U/L ALT 29 (12-78) U/L Alkaline Phosphatase 68 (46-116) IU/L C-Reactive Protein 27.0 H (0.0-0.9) mg/dL Total Protein 7.5 (6.4-8.2) g/dL Albumin 2.16 L (3.00-4.80) g/dL [place] Results Last 24 Hours: Microbiology 10/21/17 13:47 Urine Culture - Final Urine, Clean Catch Escherichia Coli 10/21/17 16:35 Gram Stain - Final Sputum - Expectorated Sputum Culture - Final 10/21/17 16:00 Aerobic Blood Culture - Preliminary Blood - Venous - Lab Draw NO GROWTH AFTER 1 DAY Anaerobic Blood Culture - Preliminary NO GROWTH AFTER 1 DAY 10/21/17 15:40 Aerobic Blood Culture - Preliminary Blood - Venous NO GROWTH AFTER 1 DAY Anaerobic Blood Culture - Preliminary NO GROWTH AFTER 1 DAY Med Orders - Current: Current Medications Acetaminophen (Tylenol) 650 mg PO Q4H PRN PRN Reason: pain , fever Last Admin: 10/22/17 13:02 Dose: 650 mg Albuterol/Ipratropium (Duoneb 3.0-0.5 Mg/3 Ml) 3 ml NEB Q6HRRT [facility] Last Admin: 10/23/17 06:30 Dose: 3 ml Amlodipine Besylate (Norvasc) 10 mg PO DAILY [facility] Last Admin: 10/23/17 08:12 Dose: 10 mg Budesonide (Pulmicort) 0.5 mg INH BIDRT [facility] Last Admin: 10/23/17 07:57 Dose: 0.5 mg Calcium Carbonate/Glycine (Tums) 500 mg PO BID [facility] Last Admin: 10/23/17 08:14 Dose: 500 mg Enoxaparin Sodium (Lovenox) 30 mg SUBCUT DAILY [facility] Last Admin: 10/23/17 08:12 Dose: 30 mg Sodium Chloride (Normal Saline) 1,000 mls @ 50 mls/hr IV ASDIRECTED [facility] Last Admin: 10/23/17 03:01 Dose: 75 mls/hr Levofloxacin/Dextrose 250 mg/ (Premix) 50 mls @ 50 mls/hr IV Q48H [facility] Last Admin: 10/22/17 09:40 Dose: 50 mls/hr Levofloxacin/Dextrose 500 mg/ (Premix) 100 mls @ 100 mls/hr IV Q48H [facility] Last Admin: 10/22/17 10:57 Dose: 100 mls/hr Piperacillin/Tazobactam/ (Dextrose 3.375 gm/ Premix) 50 mls @ 100 mls/hr IV Q6H [facility] Last Admin: 10/23/17 08:49 Dose: 100 mls/hr Methylprednisolone Sodium Succinate (Solu-Medrol) 60 mg IVPUSH DAILY [facility] Last Admin: 10/23/17 08:14 Dose: 60 mg Metoprolol Tartrate (Lopressor) 12.5 mg PO ONETIME ONE Stop: 10/23/17 10:06 Metoprolol Tartrate (Lopressor) 37.5 mg PO BID [facility] Ondansetron HCl (Zofran) 4 mg IVPUSH Q6H PRN PRN Reason: Nausea/Vomiting Pantoprazole Sodium (Protonix Iv) 40 mg IVPUSH DAILY [facility] Last Admin: 10/23/17 08:05 Dose: 40 mg Sertraline HCl (Zoloft) 100 mg PO DAILY [facility] Last Admin: 10/23/17 08:14 Dose: 100 mg Tramadol HCl (Ultram) 50 mg PO TID PRN PRN Reason: Pain Last Admin: 10/22/17 20:33 Dose: 50 mg Triazolam (Triazolam) 0.25 mg PO BEDTIME PRN PRN Reason: INSOMNIA Last Admin: 10/22/17 20:33 Dose: 0.25 mg Discontinued Medications Ceftriaxone Sodium (Rocephin) 1 gm IVPUSH ONETIME ONE Stop: 10/21/17 13:38 Last Admin: 10/21/17 13:56 Dose: 1 gm Ceftriaxone Sodium (Rocephin) 1 gm IVPUSH Q24H [facility] Sodium Chloride (Normal Saline) 500 mls @ 500 mls/hr IV ASDIRECTED [facility] Last Admin: 10/21/17 12:16 Dose: 500 mls/hr Sodium Chloride (Normal Saline) 500 mls @ 500 mls/hr IV .BOLUS [facility] Last Admin: 10/21/17 13:29 Dose: 500 mls/hr Azithromycin 500 mg/ Sodium (Chloride) 250 mls @ 250 mls/hr IV ONETIME ONE Stop: 10/21/17 14:37 Last Admin: 10/21/17 14:32 Dose: 250 mls/hr Azithromycin 500 mg/ Sodium (Chloride) 250 mls @ 250 mls/hr IV Q24H [facility] Levofloxacin/Dextrose 250 mg/ (Premix) 50 mls @ 50 mls/hr IV Q24H [facility] Levofloxacin/Dextrose 500 mg/ (Premix) 100 mls @ 100 mls/hr IV Q24H [facility] Metoprolol Tartrate (Lopressor) 25 mg PO BID [facility] Last Admin: 10/23/17 08:13 Dose: 25 mg Omeprazole (Omeprazole) 20 mg PO DAILY@0700 [facility] Last Admin: 10/22/17 06:07 Dose: 20 mg Ondansetron HCl (Zofran) 4 mg IVPUSH ONETIME ONE Stop: 10/22/17 12:46 Last Admin: 10/22/17 12:59 Dose: 4 mg - Exam Quality Assessment: Supplemental Oxygen (5 liters per nasal cannula 92%), DVT Prophylaxis (lovenox). No: Urine Catheter General: Alert, Oriented, Cooperative, No Acute Distress Lungs: Normal Respiratory Effort, Decreased Breath Sounds (throughout lung murry), Crackles (RLL). No: Wheezing Cardiovascular: Regular Rhythm, No Murmurs, Tachycardia (90-100s) GI/Abdominal Exam: Normal Bowel Sounds, Soft, No Distention, No Mass, Tender ( generalized) Extremities: No Pedal Edema Skin: Warm, Dry Neurological: Normal Speech Psy/Mental Status: Alert, Normal Affect, Normal Mood. No: Anxious - Problem List Review Problem List Initiated/Reviewed/Updated: Yes - My Orders Last 24 Hours: My Active Orders 10/23/17 09:00 Pantoprazole [ProTONIX IV] 40 mg IVPUSH DAILY 10/23/17 10:04 Ondansetron [Zofran] 4 mg IVPUSH Q6H PRN 10/23/17 10:05 Metoprolol Tartrate [Lopressor] 12.5 mg PO ONETIME ONE 10/23/17 21:00 Metoprolol Tartrate [Lopressor] 37.5 mg PO BID 10/22/17 10:15 Calcium Carbonate [Tums] 500 mg PO BID methylPREDNISolone Sod Succ [Solu-MEDROL] 60 mg IVPUSH DAILY 10/22/17 12:42 Acetaminophen [Tylenol] 650 mg PO Q4H PRN 10/22/17 14:50 Isolation [COMM] Routine - Plan Plan:: PRIMARY ASSESSMENT/PLAN: Community acquired right lower lobe pneumonia, present on admission, pseudomonas risk, improving. WBC elevated slightly to 14.7, most likely related to steroid use as was coming down previously. Continue levaquin and zosyn IV. Continue duonebs, IS, and oxygen. Will try to titrate oxygen back to patient's baseline. Preliminary sputum culture showing possible Vancomycin resistant staph aureus. Preliminary blood cultures showing no growth after 1 day. CRP 27.0 yesterday, will repeat this tomorrow to ensure trending down. CURB score of 1, low risk. Panlobular emphysema with acute exacerbation, improving. Continue IV solumedrol , Breo Ellipta, and pulmicort. Chronic 02 therapy. Requiring increased need at present. Will try to titrate back to baseline. Patient unaware of her baseline level. Dehydration, improving. Na 134, creatinine 0.66. Oral intake 1060 mL in past 24 hours. Decrease IV fluids to 50 mL/hr. Accurate I & O. BMP in AM. Sinus tachycardia, slight improvement. Increase lopressor to 37.5 mg po BID. Continue telemetry through late afternoon and will possibly discontinue if heart rate stable at 80-90s. BP adequate. No signs of sepsis at this time. Asymptomatic UTI. Urine culture revealed Ecoli and this is sensitive to levaquin. Hypocalcemia, resolving. Corrected calcium 9.2. Continue calcium carbonate 500 mg BID. Elevated AST. 45. Will continue to monitor periodically. Elevated glucose, no history of diabetes. Glucose 163. Most likely steroid induced. Intermittent nausea. Zofran IV PRN. Continue IV protonix for GI protection given current medications. Weakness, generalized. Referral to PT. SECONDARY ASSESSMENT/PLAN: Hypertension. Continue norvasc. Lopressor adjusted as above. History of hyperlipidemia. Not on medication for this. LDL 89 (2015). Anxiety and depression. Continue zoloft. GERD. Stopped omeprazole and changed to IV protonix. History of osteoporosis. Macular degeneration. History of breast cancer, s/p left mastectomy. Chronic low back pain. Diffuse DJD/osteoarthritis. Tramadol PRN. Insomnia, primary. Continue triazolam PRN. DVT prophylaxis. On lovenox. Overall treatment plan: Patient is improving clinically. Will continue IV antibiotics and steroids. IV fluids have been decreased and patient was asked to push fluids. Patient may benefit from physical therapy and swing bed. Will place referral to PT today.
[2017-10-24] MEDS: Piperacillin/Tazobactam/Dext 3.375 GM in Premix Bag 1 BAG IV SCH ×4 (02:50→22:03)
[2017-10-24] MEDS: Acetaminophen 325 MG Tab PO PRN ×2 (03:31→19:25)
[2017-10-24] MEDS: Albuterol/Ipratropium 3.0-0.5 MG/3 ML Neb Soln NEB SCH ×4 (05:48→23:39)
[2017-10-24] MEDS: Budesonide 0.5 MG/2 ML Neb Susp INH SCH ×2 (07:43→19:45)
[2017-10-24 08:03] LABS: CHLORIDE,CL 103 mmol/L (98-115); SODIUM,NA 141 mmol/L (136-145)
[2017-10-24] MEDS: methylPREDNISolone Sodium Succinate 125 MG/2 ML SDV IVPUSH SCH (08:41)
[2017-10-24] MEDS: Enoxaparin 30 MG/0.3 ML Syringe SUBCUT SCH (08:43)
[2017-10-24] MEDS: Pantoprazole 40 MG Vial IVPUSH SCH (08:46)
[2017-10-24] MEDS: Metoprolol Tartrate 25 MG Tab PO SCH ×2 (08:48→20:58)
[2017-10-24] MEDS: Sertraline 50 MG Tab PO SCH (08:50)
[2017-10-24] MEDS: amLODIPine 5 MG Tab PO SCH (08:51)
[2017-10-24] MEDS: Calcium Carbonate 500 MG Tab.Chew PO SCH ×2 (08:51→20:59)
[2017-10-24] MEDS: VILANTEROL IH SCH (09:00)
[2017-10-24] MEDS: [UNRECOGNIZED DRUG - OTHER] IH SCH (09:00)
[2017-10-24] MEDS ORDERED: Potassium Chloride 20 MEQ in Premix Bag 1 BAG IV ONE ×3 (09:30→20:00)
[2017-10-24] MEDS ORDERED: Levofloxacin/Dextrose 5%-Water 250 MG in Premix Bag 1 BAG IV SCH ×2 (09:30→12:00)
[2017-10-24] MEDS ORDERED: GI Cocktail 45 ML BOTTLE PO ONE (09:33)
[2017-10-24] MEDS ORDERED: EPINEPHrine 1:10,000 1 MG/10 ML Syringe IVPUSH PRN (09:37)
[2017-10-24] MEDS ORDERED: Lidocaine 2% 100 MG/5 ML Syringe IVPUSH PRN (09:37)
[2017-10-24] MEDS ORDERED: Nitroglycerin 0.4 MG Tab.SL SL PRN (09:37)
[2017-10-24] MEDS ORDERED: Atropine 0.1 MG/ML 10 ML Syringe IVPUSH PRN (09:37)
[2017-10-24] MEDS ORDERED: Levofloxacin/Dextrose 5%-Water 500 MG in Premix Bag 1 BAG IV SCH ×2 (10:30→13:00)
--- NOTE | 2017-10-24 10:45 | PCM.PN ---
- General Info Date of Service: 10/24/17 Functional Status: Reports: New Symptoms (Significant ongoing nauseous. ), Incentive Spirometry. Denies: Pain Controlled, Tolerating Diet - Review of Systems General: Reports: Weakness. Denies: Appetite HEENT: Reports: No Symptoms Pulmonary: Reports: Shortness of Breath, Cough, Sputum. Denies: Wheezing Cardiovascular: Denies: Chest Pain, Orthopnea, Edema Gastrointestinal: Reports: Abdominal Pain, Decreased Appetite, Nausea, Vomiting. Denies: Constipation, Diarrhea Genitourinary: Reports: No Symptoms Musculoskeletal: Reports: No Symptoms Skin: Reports: No Symptoms Neurological: Denies: Confusion Psychiatric: Denies: Depression - Patient Data Vitals - Most Recent: Last Vital Signs Temp 98.9 F 10/24/17 06:49 Pulse 96 10/24/17 09:00 Resp 20 10/24/17 06:49 BP 150/74 H 10/24/17 08:51 Pulse Ox 94 L 10/24/17 09:00 Weight - Most Recent: 101 lb 15.985 oz I&O - Last 24 Hours: Intake & Output 10/23/17 10/24/17 10/24/17 22:59 06:59 14:59 Intake Total 926 690 Output Total 300 2200 Balance 626 -1510 Lab Results Last 24 Hours: Laboratory Results - last 24 hr 10/24/17 10/24/17 10/24/17 Range/Units 07:20 07:20 07:20 Sodium 141 (136-145) mmol/L Potassium 2.7 L (3.3-5.3) mmol/L Chloride 103 (98-115) mmol/L Carbon Dioxide 25.5 (21.0-32.0) mmol/L BUN 10 (6-25) mg/dL Creatinine 0.68 (0.51-1.17) mg/dL Est Cr Clr Drug Dosing 40.96 mL/min Estimated GFR (MDRD) > 60 mL/min Glucose 116 H (70-110) mg/dL Calcium 8.5 L (8.7-10.3) mg/dL Troponin I 0.08 H* (0.00-0.070) ng/mL C-Reactive Protein 9.1 H (0.0-0.9) mg/dL [facility] Results Last 24 Hours: Microbiology 10/21/17 16:00 Aerobic Blood Culture - Preliminary Blood - Venous - Lab Draw NO GROWTH AFTER 2 DAYS Anaerobic Blood Culture - Preliminary NO GROWTH AFTER 2 DAYS 10/21/17 15:40 Aerobic Blood Culture - Preliminary Blood - Venous NO GROWTH AFTER 2 DAYS Anaerobic Blood Culture - Preliminary NO GROWTH AFTER 2 DAYS 10/21/17 13:47 Urine Culture - Final Urine, Clean Catch Escherichia Coli 10/21/17 16:35 Gram Stain - Final Sputum - Expectorated Sputum Culture - Final Med Orders - Current: Current Medications Acetaminophen (Tylenol) 650 mg PO Q4H PRN PRN Reason: pain , fever Last Admin: 10/24/17 03:31 Dose: 650 mg Albuterol/Ipratropium (Duoneb 3.0-0.5 Mg/3 Ml) 3 ml NEB Q6HRRT [facility] Last Admin: 10/24/17 05:48 Dose: 3 ml Amlodipine Besylate (Norvasc) 10 mg PO DAILY [facility] Last Admin: 10/24/17 08:51 Dose: 10 mg Atropine Sulfate (Atropine 0.1 Mg/Ml) 0 mg IVPUSH ASDIRECTED PRN PRN Reason: Heart Budesonide (Pulmicort) 0.5 mg INH BIDRT [facility] Last Admin: 10/24/17 07:43 Dose: 0.5 mg Calcium Carbonate/Glycine (Tums) 500 mg PO BID [facility] Last Admin: 10/24/17 08:51 Dose: 500 mg Enoxaparin Sodium (Lovenox) 30 mg SUBCUT DAILY [facility] Last Admin: 10/24/17 08:43 Dose: 30 mg Epinephrine HCl (Epinephrine 1:10,000) 1 mg IVPUSH ASDIRECTED PRN PRN Reason: Heart Sodium Chloride (Normal Saline) 1,000 mls @ 50 mls/hr IV ASDIRECTED [facility] Last Admin: 10/23/17 22:21 Dose: 75 mls/hr Piperacillin/Tazobactam/ (Dextrose 3.375 gm/ Premix) 50 mls @ 100 mls/hr IV Q6H [facility] Last Admin: 10/24/17 08:52 Dose: 100 mls/hr Potassium Chloride 20 meq/ (Premix) 100 mls @ 50 mls/hr IV ONETIME ONE Stop: 10/24/17 11:29 Last Admin: 10/24/17 09:50 Dose: 50 mls/hr Potassium Chloride 20 meq/ (Premix) 100 mls @ 50 mls/hr IV ONETIME ONE Stop: 10/24/17 15:59 Potassium Chloride 20 meq/ (Premix) 100 mls @ 50 mls/hr IV ONETIME ONE Stop: 10/24/17 21:59 Levofloxacin/Dextrose 250 mg/ (Premix) 50 mls @ 50 mls/hr IV Q48H [facility] Levofloxacin/Dextrose 500 mg/ (Premix) 100 mls @ 100 mls/hr IV Q48H [facility] Lidocaine HCl (Xylocaine 2%) 0 mg IVPUSH ASDIRECTED PRN PRN Reason: Heart Methylprednisolone Sodium Succinate (Solu-Medrol) 60 mg IVPUSH DAILY [facility] Last Admin: 10/24/17 08:41 Dose: 60 mg Metoprolol Tartrate (Lopressor) 37.5 mg PO BID [facility] Last Admin: 10/24/17 08:48 Dose: 37.5 mg Nitroglycerin (Nitrostat) 0.4 mg SL ASDIRECTED PRN PRN Reason: Heart Ondansetron HCl (Zofran Odt) 4 mg PO Q4H [facility] Pantoprazole Sodium (Protonix Iv) 40 mg IVPUSH DAILY [facility] Last Admin: 10/24/17 08:46 Dose: 40 mg Sertraline HCl (Zoloft) 100 mg PO DAILY [facility] Last Admin: 10/24/17 08:50 Dose: 100 mg Tramadol HCl (Ultram) 50 mg PO TID PRN PRN Reason: Pain Last Admin: 10/22/17 20:33 Dose: 50 mg Triazolam (Triazolam) 0.25 mg PO BEDTIME PRN PRN Reason: INSOMNIA Last Admin: 10/23/17 20:32 Dose: 0.25 mg Discontinued Medications Al Hydroxide/Mg Hydroxide (Gi Cocktail) 45 ml PO ONETIME ONE Stop: 10/24/17 09:34 Last Admin: 10/24/17 09:37 Dose: 45 ml Ceftriaxone Sodium (Rocephin) 1 gm IVPUSH ONETIME ONE Stop: 10/21/17 13:38 Last Admin: 10/21/17 13:56 Dose: 1 gm Ceftriaxone Sodium (Rocephin) 1 gm IVPUSH Q24H [facility] Sodium Chloride (Normal Saline) 500 mls @ 500 mls/hr IV ASDIRECTED [facility] Last Admin: 10/21/17 12:16 Dose: 500 mls/hr Sodium Chloride (Normal Saline) 500 mls @ 500 mls/hr IV .BOLUS [facility] Last Admin: 10/21/17 13:29 Dose: 500 mls/hr Azithromycin 500 mg/ Sodium (Chloride) 250 mls @ 250 mls/hr IV ONETIME ONE Stop: 10/21/17 14:37 Last Admin: 10/21/17 14:32 Dose: 250 mls/hr Azithromycin 500 mg/ Sodium (Chloride) 250 mls @ 250 mls/hr IV Q24H [facility] Levofloxacin/Dextrose 250 mg/ (Premix) 50 mls @ 50 mls/hr IV Q24H [facility] Levofloxacin/Dextrose 500 mg/ (Premix) 100 mls @ 100 mls/hr IV Q24H [facility] Levofloxacin/Dextrose 250 mg/ (Premix) 50 mls @ 50 mls/hr IV Q48H [facility] Last Admin: 10/22/17 09:40 Dose: 50 mls/hr Levofloxacin/Dextrose 500 mg/ (Premix) 100 mls @ 100 mls/hr IV Q48H [facility] Last Admin: 10/22/17 10:57 Dose: 100 mls/hr Levofloxacin/Dextrose 250 mg/ (Premix) 50 mls @ 50 mls/hr IV Q48H [facility] Last Admin: 10/24/17 09:59 Dose: Not Given Levofloxacin/Dextrose 500 mg/ (Premix) 100 mls @ 100 mls/hr IV Q48H [facility] Metoprolol Tartrate (Lopressor) 25 mg PO BID [facility] Last Admin: 10/23/17 08:13 Dose: 25 mg Metoprolol Tartrate (Lopressor) 12.5 mg PO ONETIME ONE Stop: 10/23/17 10:06 Last Admin: 10/23/17 11:08 Dose: 12.5 mg Omeprazole (Omeprazole) 20 mg PO DAILY@0700 [facility] Last Admin: 10/22/17 06:07 Dose: 20 mg Ondansetron HCl (Zofran) 4 mg IVPUSH ONETIME ONE Stop: 10/22/17 12:46 Last Admin: 10/22/17 12:59 Dose: 4 mg Ondansetron HCl (Zofran) 4 mg IVPUSH Q6H PRN PRN Reason: Nausea/Vomiting Last Admin: 10/24/17 03:41 Dose: 4 mg - Exam Quality Assessment: Supplemental Oxygen (O2 requirements higher from home baseline) General: Alert, Oriented, Mild Distress Neck: Supple Lungs: Rhonchi (Decreased breath sounds upper rhonchi lower bases--bilateral) Cardiovascular: Regular Rate. No: Tachycardia GI/Abdominal Exam: Soft, Non-Tender, No Mass. No: Normal Bowel Sounds ( Hypotonic bowel tones), Distended, Guarding, Rigid, Mass (Female) Exam: Normal External Exam Back Exam: No: CVA Tenderness (L), CVA Tenderness (R) Extremities: No Pedal Edema Psy/Mental Status: Alert, Normal Affect, Normal Mood - Problem List Review Problem List Initiated/Reviewed/Updated: Yes - My Orders Last 24 Hours: My Active Orders 10/24/17 09:30 Potassium Chloride [KCL 20 MEQ in Water 100 ML] 20 meq Premix Bag 1 bag IV ONETIME 10/24/17 09:37 Atropine [Atropine 0.1 MG/ML] 0 mg IVPUSH ASDIRECTED PRN EPINEPHrine [EPINEPHrine 1:10,000] 1 mg IVPUSH ASDIRECTED PRN Lidocaine 2% [Xylocaine 2%] 0 mg IVPUSH ASDIRECTED PRN Nitroglycerin [Nitrostat] 0.4 mg SL ASDIRECTED PRN 10/24/17 09:39 CDIFF TOX A+B [OP] Routine 10/24/17 10:30 Ondansetron [Zofran ODT] 4 mg PO Q4H 10/24/17 14:00 Potassium Chloride [KCL 20 MEQ in Water 100 ML] 20 meq Premix Bag 1 bag IV ONETIME 10/24/17 20:00 Potassium Chloride [KCL 20 MEQ in Water 100 ML] 20 meq Premix Bag 1 bag IV ONETIME 10/24/17 Lunch Clear Liquid Diet [DIET] - Plan Plan:: PRIMARY ASSESSMENT/PLAN: Update today, patient with ongoing significant nausea. Possibly mesenteric stealing-troponin assessed this morning slightly elevated, will serialized, however GI cocktail improvement Pneumonia, CAP, POA, pseudomonas risk, although increased oxygen requirements, appears to be clinically improving. Ongoing neutrophilia, afebrile, blood pressure good, nontoxic in appearance. Incentive spirometer aggressively. Due to her underlying pulmonary disease prudent to continue broad-spectrum for at least 1 more day. Continue levaquin. Continue duonebs, IS, and oxygen. Preliminary sputum culture showing possible Vancomycin resistant staph aureus. BC surveillance no growth, inflammatory markers trending down. Panlobular emphysema with acute exacerbation, improving. Continue IV solumedrol , patient came into the hospital on dual ICS --will hold Breo Ellipta, and continue with pulmicort. Thrombocytosis, mild and reactive Elevated troponin, in clinical setting of hypokalemia, correct with IV K, continue telemetry, could be inflammatory mediated non-STEMI. CRP elevated on admission Hypokalemia, continue with telemetry and correction required today Nausea, significant on rounds however improvement with GI cocktail, changed to scheduled Zofran. On PPI, repositioned in chair this morning, Chronic 02 therapy. RT, Requiring increased need at present. ICS Dehydration, mild Asymptomatic bacteriuria, continue treating due to significant nausea, definitive treatment, crossed covered with Levaquin. Hypocalcemia, resolving. Corrected calcium 9.2. Continue calcium carbonate 500 mg BID. Elevated AST. 45. Will continue to monitor periodically. Steroid-induced hyperglycemia Elevated glucose, no history DM. Mild Weakness, generalized. Referral to PT. SECONDARY ASSESSMENT/PLAN: Hypertension. Continue norvasc. Lopressor adjusted as above. History of hyperlipidemia. diet controlled, LDL 89 (2015). Anxiety and depression. Continue zoloft. GERD. IV protonix. History of osteoporosis. Macular degeneration. History of breast cancer, s/p left mastectomy. Chronic low back pain. Diffuse DJD/osteoarthritis. Tramadol PRN. Insomnia, primary. Continue triazolam PRN. DVT prophylaxis. On lovenox. Overall treatment plan: replace potassium, serialized troponin, hold Breo- Ellipta, aggressive ICS, reduce steroids, continue IV antibiotics, BC/Sputum surveillance. Patient may benefit from physical therapy and swing bed.
[2017-10-24] MEDS: Ondansetron 4 MG Tab.DIS PO SCH ×4 (11:15→23:39)
[2017-10-24] MEDS: Atropine/Diphenoxylate 0.025-2.5 MG Tab PO PRN ×2 (13:23→16:58)
[2017-10-24] MEDS: traMADol 50 MG Tab PO PRN ×2 (16:57→21:04)
[2017-10-25] MEDS: Ondansetron 4 MG Tab.DIS PO SCH ×2 (02:06→06:27)
[2017-10-25] MEDS: Piperacillin/Tazobactam/Dext 3.375 GM in Premix Bag 1 BAG IV SCH ×2 (02:07→08:49)
[2017-10-25] MEDS: Sodium Chloride 0.9% 1,000 ML IV SCH (04:57)
[2017-10-25] MEDS: Albuterol/Ipratropium 3.0-0.5 MG/3 ML Neb Soln NEB SCH ×4 (06:08→22:06)
[2017-10-25] MEDS: Budesonide 0.5 MG/2 ML Neb Susp INH SCH ×2 (07:43→20:03)
[2017-10-25 07:48] LABS: CHLORIDE,CL 100 mmol/L (98-115); SODIUM,NA 138 mmol/L (136-145)
[2017-10-25] MEDS: Metoprolol Tartrate 25 MG Tab PO SCH ×2 (08:33→20:19)
[2017-10-25] MEDS: Sertraline 50 MG Tab PO SCH (08:34)
[2017-10-25] MEDS: amLODIPine 5 MG Tab PO SCH (08:34)
[2017-10-25] MEDS: Calcium Carbonate 500 MG Tab.Chew PO SCH ×2 (08:34→20:19)
[2017-10-25] MEDS: Pantoprazole 40 MG Vial IVPUSH SCH (08:39)
[2017-10-25] MEDS: Enoxaparin 30 MG/0.3 ML Syringe SUBCUT SCH (08:41)
[2017-10-25] MEDS: Acetaminophen 325 MG Tab PO PRN ×2 (08:54→17:11)
[2017-10-25] MEDS ORDERED: methylPREDNISolone Sodium Succinate 125 MG/2 ML SDV IVPUSH SCH (09:00)
[2017-10-25] MEDS ORDERED: predniSONE 10 MG Tab PO SCH (09:45)
[2017-10-25] MEDS ORDERED: Potassium Chloride 20 MEQ in Premix Bag 1 BAG IV ONE ×3 (09:46→14:00)
[2017-10-25] MEDS ORDERED: Ondansetron 4 MG Tab.DIS PO PRN (09:46)
[2017-10-25] MEDS ORDERED: Sodium Chloride 0.9% 5 ML Syringe FLUSH PRN (09:50)
[2017-10-25] MEDS ORDERED: GI Cocktail 45 ML BOTTLE PO ONE (09:53)
--- NOTE | 2017-10-25 09:59 | PCM.PN ---
- General Info Functional Status: Reports: Pain Controlled, Tolerating Diet (We'll advance diet ), Incentive Spirometry (Patient states doing incentive spirometer occasionally) . Denies: Ambulating, New Symptoms - Review of Systems General: Reports: Weakness. Denies: Fever HEENT: Reports: No Symptoms Pulmonary: Reports: Shortness of Breath. Denies: Sputum, Wheezing Cardiovascular: Reports: Dyspnea on Exertion. Denies: Chest Pain, Palpitations , Edema Gastrointestinal: Reports: Nausea (Only slight nauseous this morning). Denies: Vomiting Genitourinary: Reports: No Symptoms Musculoskeletal: Reports: No Symptoms Skin: Reports: No Symptoms Neurological: Reports: Difficulty Walking, Weakness, Gait Disturbance. Denies: Confusion Psychiatric: Reports: No Symptoms - Patient Data Vitals - Most Recent: Last Vital Signs Temp 99.1 F 10/25/17 06:20 Pulse 105 H 10/25/17 08:33 Resp 22 H 10/25/17 06:20 BP 149/77 H 10/25/17 08:34 Pulse Ox 93 L 10/25/17 07:43 Weight - Most Recent: 101 lb 15.985 oz I&O - Last 24 Hours: Intake & Output 10/24/17 10/25/17 10/25/17 22:59 06:59 14:59 Intake Total 1519 628 Balance 1519 628 Lab Results Last 24 Hours: Laboratory Results - last 24 hr 10/24/17 10/24/17 10/25/17 Range/Units 07:20 15:00 07:05 Sodium 138 (136-145) mmol/L Potassium 3.1 L (3.3-5.3) mmol/L Chloride 100 (98-115) mmol/L Carbon Dioxide 27.8 (21.0-32.0) mmol/L BUN 12 (6-25) mg/dL Creatinine 0.79 (0.51-1.17) mg/dL Est Cr Clr Drug Dosing 35.26 mL/min Estimated GFR (MDRD) > 60 mL/min Glucose 99 (70-110) mg/dL Calcium 8.7 (8.7-10.3) mg/dL Troponin I 0.08 H* 0.03 (0.00-0.070) ng/mL [facility] Results Last 24 Hours: Microbiology 10/21/17 16:00 Aerobic Blood Culture - Preliminary Blood - Venous - Lab Draw NO GROWTH AFTER 3 DAYS Anaerobic Blood Culture - Preliminary NO GROWTH AFTER 3 DAYS 10/21/17 15:40 Aerobic Blood Culture - Preliminary Blood - Venous NO GROWTH AFTER 3 DAYS Anaerobic Blood Culture - Preliminary NO GROWTH AFTER 3 DAYS 10/24/17 10:35 Clostridium difficile Toxin A&B (M) - Final Stool / Feces - Stool, Liquid NEGATIVE CDIFF TOXIN Med Orders - Current: Current Medications Acetaminophen (Tylenol) 650 mg PO Q4H PRN PRN Reason: pain , fever Last Admin: 10/25/17 08:54 Dose: 650 mg Albuterol/Ipratropium (Duoneb 3.0-0.5 Mg/3 Ml) 3 ml NEB Q6HRRT [facility] Last Admin: 10/25/17 06:08 Dose: 3 ml Amlodipine Besylate (Norvasc) 10 mg PO DAILY [facility] Last Admin: 10/25/17 08:34 Dose: 10 mg Atropine Sulfate (Atropine 0.1 Mg/Ml) 0 mg IVPUSH ASDIRECTED PRN PRN Reason: Heart Budesonide (Pulmicort) 0.5 mg INH BIDRT [facility] Last Admin: 10/25/17 07:43 Dose: 0.5 mg Calcium Carbonate/Glycine (Tums) 500 mg PO BID [facility] Last Admin: 10/25/17 08:34 Dose: 500 mg Diphenoxylate HCl/Atropine (Lomotil 0.025-2.5 Mg) 0.5 - 1 tab PO Q2H PRN PRN Reason: Diarrhea Last Admin: 10/24/17 16:58 Dose: 1 tab Enoxaparin Sodium (Lovenox) 30 mg SUBCUT DAILY [facility] Last Admin: 10/25/17 08:41 Dose: 30 mg Epinephrine HCl (Epinephrine 1:10,000) 1 mg IVPUSH ASDIRECTED PRN PRN Reason: Heart Sodium Chloride (Normal Saline) 1,000 mls @ 50 mls/hr IV ASDIRECTED [facility] Last Admin: 10/25/17 04:57 Dose: 75 mls/hr Piperacillin/Tazobactam/ (Dextrose 3.375 gm/ Premix) 50 mls @ 100 mls/hr IV Q6H [facility] Last Admin: 10/25/17 08:49 Dose: 100 mls/hr Levofloxacin/Dextrose 250 mg/ (Premix) 50 mls @ 50 mls/hr IV Q48H [facility] Last Admin: 10/24/17 12:02 Dose: 50 mls/hr Levofloxacin/Dextrose 500 mg/ (Premix) 100 mls @ 100 mls/hr IV Q48H [facility] Last Admin: 10/24/17 13:21 Dose: 100 mls/hr Lidocaine HCl (Xylocaine 2%) 0 mg IVPUSH ASDIRECTED PRN PRN Reason: Heart Methylprednisolone Sodium Succinate (Solu-Medrol) 40 mg IVPUSH DAILY [facility] Last Admin: 10/25/17 08:33 Dose: 40 mg Metoprolol Tartrate (Lopressor) 37.5 mg PO BID [facility] Last Admin: 10/25/17 08:33 Dose: 37.5 mg Nitroglycerin (Nitrostat) 0.4 mg SL ASDIRECTED PRN PRN Reason: Heart Ondansetron HCl (Zofran Odt) 4 mg PO Q4HR [facility] Last Admin: 10/25/17 06:27 Dose: 4 mg Pantoprazole Sodium (Protonix Iv) 40 mg IVPUSH DAILY [facility] Last Admin: 10/25/17 08:39 Dose: 40 mg Sertraline HCl (Zoloft) 100 mg PO DAILY [facility] Last Admin: 10/25/17 08:34 Dose: 100 mg Tramadol HCl (Ultram) 50 mg PO TID PRN PRN Reason: Pain Last Admin: 10/24/17 21:04 Dose: 50 mg Triazolam (Triazolam) 0.25 mg PO BEDTIME PRN PRN Reason: INSOMNIA Last Admin: 10/24/17 21:00 Dose: 0.25 mg Discontinued Medications Al Hydroxide/Mg Hydroxide (Gi Cocktail) 45 ml PO ONETIME ONE Stop: 10/24/17 09:34 Last Admin: 10/24/17 09:37 Dose: 45 ml Ceftriaxone Sodium (Rocephin) 1 gm IVPUSH ONETIME ONE Stop: 10/21/17 13:38 Last Admin: 10/21/17 13:56 Dose: 1 gm Ceftriaxone Sodium (Rocephin) 1 gm IVPUSH Q24H [facility] Sodium Chloride (Normal Saline) 500 mls @ 500 mls/hr IV ASDIRECTED [facility] Last Admin: 10/21/17 12:16 Dose: 500 mls/hr Sodium Chloride (Normal Saline) 500 mls @ 500 mls/hr IV .BOLUS [facility] Last Admin: 10/21/17 13:29 Dose: 500 mls/hr Azithromycin 500 mg/ Sodium (Chloride) 250 mls @ 250 mls/hr IV ONETIME ONE Stop: 10/21/17 14:37 Last Admin: 10/21/17 14:32 Dose: 250 mls/hr Azithromycin 500 mg/ Sodium (Chloride) 250 mls @ 250 mls/hr IV Q24H [facility] Levofloxacin/Dextrose 250 mg/ (Premix) 50 mls @ 50 mls/hr IV Q24H [facility] Levofloxacin/Dextrose 500 mg/ (Premix) 100 mls @ 100 mls/hr IV Q24H [facility] Levofloxacin/Dextrose 250 mg/ (Premix) 50 mls @ 50 mls/hr IV Q48H [facility] Last Admin: 10/22/17 09:40 Dose: 50 mls/hr Levofloxacin/Dextrose 500 mg/ (Premix) 100 mls @ 100 mls/hr IV Q48H [facility] Last Admin: 10/22/17 10:57 Dose: 100 mls/hr Levofloxacin/Dextrose 250 mg/ (Premix) 50 mls @ 50 mls/hr IV Q48H [facility] Last Admin: 10/24/17 09:59 Dose: Not Given Levofloxacin/Dextrose 500 mg/ (Premix) 100 mls @ 100 mls/hr IV Q48H [facility] Potassium Chloride 20 meq/ (Premix) 100 mls @ 50 mls/hr IV ONETIME ONE Stop: 10/24/17 11:29 Last Admin: 10/24/17 09:50 Dose: 50 mls/hr Potassium Chloride 20 meq/ (Premix) 100 mls @ 50 mls/hr IV ONETIME ONE Stop: 10/24/17 15:59 Last Admin: 10/24/17 15:13 Dose: 50 mls/hr Potassium Chloride 20 meq/ (Premix) 100 mls @ 50 mls/hr IV ONETIME ONE Stop: 10/24/17 21:59 Last Admin: 10/24/17 19:21 Dose: 50 mls/hr Methylprednisolone Sodium Succinate (Solu-Medrol) 60 mg IVPUSH DAILY [facility] Last Admin: 10/24/17 08:41 Dose: 60 mg Metoprolol Tartrate (Lopressor) 25 mg PO BID [facility] Last Admin: 10/23/17 08:13 Dose: 25 mg Metoprolol Tartrate (Lopressor) 12.5 mg PO ONETIME ONE Stop: 10/23/17 10:06 Last Admin: 10/23/17 11:08 Dose: 12.5 mg Omeprazole (Omeprazole) 20 mg PO DAILY@0700 [facility] Last Admin: 10/22/17 06:07 Dose: 20 mg Ondansetron HCl (Zofran) 4 mg IVPUSH ONETIME ONE Stop: 10/22/17 12:46 Last Admin: 10/22/17 12:59 Dose: 4 mg Ondansetron HCl (Zofran) 4 mg IVPUSH Q6H PRN PRN Reason: Nausea/Vomiting Last Admin: 10/24/17 03:41 Dose: 4 mg - Exam Quality Assessment: Supplemental Oxygen General: Alert, Oriented, No Acute Distress Neck: Supple, No JVD Lungs: Decreased Breath Sounds (Decreased breath sounds upper field, rhonchi lower bases), Rhonchi. No: Rales, Rub, Stridor, Wheezing Cardiovascular: Tachycardia GI/Abdominal Exam: Soft, Non-Tender Back Exam: No: CVA Tenderness (L), CVA Tenderness (R) Peripheral Pulses: 2+: Radial (L), Radial (R) Neurological: No New Focal Deficit Psy/Mental Status: Alert, Normal Affect, Normal Mood - Problem List Review Problem List Initiated/Reviewed/Updated: Yes - My Orders Last 24 Hours: My Active Orders 10/24/17 09:37 Atropine [Atropine 0.1 MG/ML] 0 mg IVPUSH ASDIRECTED PRN EPINEPHrine [EPINEPHrine 1:10,000] 1 mg IVPUSH ASDIRECTED PRN Lidocaine 2% [Xylocaine 2%] 0 mg IVPUSH ASDIRECTED PRN Nitroglycerin [Nitrostat] 0.4 mg SL ASDIRECTED PRN 10/24/17 10:30 Ondansetron [Zofran ODT] 4 mg PO Q4HR 10/24/17 Lunch Clear Liquid Diet [DIET] 10/25/17 09:00 methylPREDNISolone Sod Succ [Solu-MEDROL] 40 mg IVPUSH DAILY - Plan Plan:: PRIMARY ASSESSMENT/PLAN: Update today, much improved with her nausea, significant short of breath with minimal exertion Pneumonia, CAP, POA, pseudomonas risk, although increased oxygen requirements, appears to be clinically improving. afebrile, MAP good, nontoxic in appearance. qSOFA 1/3 (however does have underlying pulmonary disease) patient admits not doing ICS as frequently as instructed. Discontinue broad-spectrum antibiotics. Continue levaquin. Continue duonebs, IS, and oxygen. Preliminary sputum culture showing possible Vancomycin resistant staph aureus. BC surveillance no growth, inflammatory markers trending down. Panlobular emphysema with acute exacerbation, clinically improving. Switch to oral tapered prednisone. patient came into the hospital on dual ICS -- hold Breo Ellipta, and continue with pulmicort. Thrombocytosis, mild and reactive Elevated troponin, now normal. did have CRP elevated on admission. No ischemic picture continue telemetry while potassium correction Hypokalemia, improving however will need further supplementation Nausea, significantly improved with GI cocktail and scheduled 5HT-3--change now to PRN. On PPI, repositioned in chair this morning, Chronic 02 therapy. RT, Requiring increased need at present. ICS Dehydration, resolved. Placed back on diet Saline lock IV. mild Asymptomatic bacteriuria, improving symptoms. crossed covered with Levaquin. Elevated AST. 45--normalized ratio Steroid-induced hyperglycemia Elevated glucose, no history DM. Mild Weakness, generalized. Patient does qualify for physical therapy. Anticipate placement within 24-48 hours SECONDARY ASSESSMENT/PLAN: Hypertension. Continue norvasc. Lopressor adjusted as above. History of hyperlipidemia. diet controlled, LDL 89 (2014). Anxiety and depression. Continue zoloft. GERD. IV protonix. History of osteoporosis. Macular degeneration. History of breast cancer, s/p left mastectomy. Chronic low back pain. Diffuse DJD/osteoarthritis. Tramadol PRN. Insomnia, primary. Continue triazolam PRN. DVT prophylaxis. On lovenox. Overall treatment plan: Patient will continue in acute care status do to requiring IV potassium replacement, telemetry, increase oxygen requirements, terminating her ability to advance diet, IV antibiotics. Hold Breo-Ellipta, aggressive ICS, reduce to oral and tapered steroids. Discontinue broad-spectrum IV antibiotic. Advance diet, anticipate placement swing [facility] within 24-48 hours.
[2017-10-25] MEDS: traMADol 50 MG Tab PO PRN (10:36)
[2017-10-26] MEDS: Albuterol/Ipratropium 3.0-0.5 MG/3 ML Neb Soln NEB SCH ×2 (05:38→10:49)
[2017-10-26 06:23] VITALS: BP 153/79
[2017-10-26] MEDS: Budesonide 0.5 MG/2 ML Neb Susp INH SCH (07:38)
[2017-10-26 07:49] LABS: CHLORIDE,CL 100 mmol/L (98-115); SODIUM,NA 138 mmol/L (136-145)
[2017-10-26] MEDS: Calcium Carbonate 500 MG Tab.Chew PO SCH (08:16)
[2017-10-26] MEDS: Sertraline 50 MG Tab PO SCH (08:17)
[2017-10-26] MEDS: Enoxaparin 30 MG/0.3 ML Syringe SUBCUT SCH (08:17)
[2017-10-26] MEDS: Pantoprazole 40 MG Vial IVPUSH SCH (08:18)
[2017-10-26] MEDS: Metoprolol Tartrate 25 MG Tab PO SCH (08:19)
[2017-10-26] MEDS: amLODIPine 5 MG Tab PO SCH (08:19)
[2017-10-26] MEDS: Atropine/Diphenoxylate 0.025-2.5 MG Tab PO PRN (08:48)
[2017-10-26] MEDS ORDERED: predniSONE 10 MG Tab PO SCH (09:00)
[2017-10-26] MEDS ORDERED: Pneumococcal Polyvalent-23 Vaccine 0.5 ML SDV IM ONE (09:34)
--- NOTE | 2017-10-26 11:01 | PCM.DCSUM1 ---
Discharge Summary - Discharge Data Discharge Date: 10/26/17 Discharge Disposition: DC/Tfer W/I Hosp To Swing 61 Condition: Good - Patient Summary/Data Complications: Patient did require potassium supplementation, increase oxygen requirements, along with IV antibiotics for pneumonia. She did have some significant nausea that responded to PPI therapy along with GI cocktail. She also had slight troponin elevation likely noncardiac etiology Consults: Consultations 10/23/17 10:38 Consult to Physical Therapy [PT Evaluation and Treatment] [CONS] Routine Hospital Course: Patient did fairly well during her acute care stay however due to underlying significant emphysema and her pneumonia patient progressed very slowly. She required IV antibiotics, potassium supplementation due to low potassium levels, was significantly nauseated at one point however this improved with positioning , GI cocktail and PPI therapy. She did require increased oxygen needs and respiratory therapy was consulted. She was started on IV glucocorticoids however this has been tapering down now switch to orals. Flu shot will be administered on October 27, 2017. Current on pneumococcal. She did have a slight elevation in troponin(0.08) trended down immediately without any chest pain. Likely noncardiac. He was placed on telemetry while replacing potassium. She was dehydrated mildly on admission and required IV fluids due to GI symptoms and not tolerating orals very well. Physical therapy consultation patient extremely weak and debilitated with increased oxygen requirements. Patient does plan on going home however has agreed for swing bed therapy. - Discharge Plan Home Medications: Home Meds Omeprazole 20 mg PO DAILY@0700 07/06/15 [History] Sertraline HCl 100 mg PO DAILY 07/06/15 [History] traMADol [Take Home: traMADol 50 MG, 4 Tab Pack] 50 mg PO TID PRN 07/06/15 [ History] Metoprolol Tartrate 25 mg PO BID 07/08/15 [History] amLODIPine [Norvasc] 10 mg PO DAILY #90 tablet 07/09/15 [Rx] Albuterol [Ventolin HFA] 2 puff INH Q4H PRN 08/10/15 [History] Albuterol/Ipratropium [DuoNeb 3.0-0.5 MG/3 ML] 3 ml NEB Q6HRRT PRN 08/10/15 [ History] Budesonide [Pulmicort] 0.5 mg IH BID 08/10/15 [History] Triazolam 0.25 mg PO BEDTIME PRN 08/29/16 [History] Fluticasone/Vilanterol [Breo Ellipta 100-25 MCG Inhalation Kit] 1 puff INH DAILY 10/21/17 [History] Forms: ED Department Discharge Referrals: PCP,Unknown [Ordering Only Provider] - - Discharge Summary/Plan Comment DC Time >30 min.: Yes Discharge Summary/Plan Comment: Due to ongoing weakness, increased oxygen needs, requiring assistance for ambulation due to shortness of breath with exertion of any type, physical therapy feels she can benefit from swing bed therapy here. Plan is for the patient to eventually go back home however family is concerned and possible assisted living. Final diagnosis Weakness, debilitation Pneumonia, CPAP, present on admission, Emphysema with COPD exacerbation Increase oxygen needs, - Patient Data Vitals - Most Recent: Last Vital Signs Temp 99.4 F 10/26/17 06:22 Pulse 104 H 10/26/17 08:19 Resp 18 10/26/17 06:22 BP 153/79 H 10/26/17 08:19 Pulse Ox 94 L 10/26/17 07:38 Weight - Most Recent: 101 lb 15.985 oz I&O - Last 24 hours: Intake & Output 10/25/17 10/26/17 10/26/17 22:59 06:59 14:59 Intake Total 690 100 Balance 690 100 Lab Results - Last 24 hrs: Laboratory Results - last 24 hr 10/26/17 Range/Units 07:20 Sodium 138 (136-145) mmol/L Potassium 3.4 (3.3-5.3) mmol/L Chloride 100 (98-115) mmol/L Carbon Dioxide 29.1 (21.0-32.0) mmol/L BUN 15 (6-25) mg/dL Creatinine 0.74 (0.51-1.17) mg/dL Est Cr Clr Drug Dosing 37.64 mL/min Estimated GFR (MDRD) > 60 mL/min Glucose 108 (70-110) mg/dL Calcium 8.8 (8.7-10.3) mg/dL FER Results - Last 24 hrs: Microbiology 10/21/17 16:35 Gram Stain - Final Sputum - Expectorated Sputum Culture - Final - Preliminary Staphylococcus Aureus 10/21/17 16:00 Aerobic Blood Culture - Preliminary Blood - Venous - Lab Draw NO GROWTH AFTER 4 DAYS Anaerobic Blood Culture - Preliminary NO GROWTH AFTER 4 DAYS 10/21/17 15:40 Aerobic Blood Culture - Preliminary Blood - Venous NO GROWTH AFTER 4 DAYS Anaerobic Blood Culture - Preliminary NO GROWTH AFTER 4 DAYS Med Orders - Current: Current Medications Acetaminophen (Tylenol) 650 mg PO Q4H PRN PRN Reason: pain , fever Last Admin: 10/25/17 17:11 Dose: 650 mg Albuterol/Ipratropium (Duoneb 3.0-0.5 Mg/3 Ml) 3 ml NEB Q6HRRT [facility] Last Admin: 10/26/17 10:49 Dose: 3 ml Amlodipine Besylate (Norvasc) 10 mg PO DAILY [facility] Last Admin: 10/26/17 08:19 Dose: 10 mg Atropine Sulfate (Atropine 0.1 Mg/Ml) 0 mg IVPUSH ASDIRECTED PRN PRN Reason: Heart Budesonide (Pulmicort) 0.5 mg INH BIDRT [facility] Last Admin: 10/26/17 07:38 Dose: 0.5 mg Calcium Carbonate/Glycine (Tums) 500 mg PO BID [facility] Last Admin: 10/26/17 08:16 Dose: 500 mg Diphenoxylate HCl/Atropine (Lomotil 0.025-2.5 Mg) 0.5 - 1 tab PO Q2H PRN PRN Reason: Diarrhea Last Admin: 10/26/17 08:48 Dose: 1 tab Enoxaparin Sodium (Lovenox) 30 mg SUBCUT DAILY [facility] Last Admin: 10/26/17 08:17 Dose: 30 mg Epinephrine HCl (Epinephrine 1:10,000) 1 mg IVPUSH ASDIRECTED PRN PRN Reason: Heart Levofloxacin/Dextrose 250 mg/ (Premix) 50 mls @ 50 mls/hr IV Q48H [facility] Last Admin: 10/24/17 12:02 Dose: 50 mls/hr Levofloxacin/Dextrose 500 mg/ (Premix) 100 mls @ 100 mls/hr IV Q48H [facility] Last Admin: 10/24/17 13:21 Dose: 100 mls/hr Influenza Virus Vaccine (Fluzone High-Dose ) 180 mcg IM .ONCE ONE Stop: 10/27/17 10:01 Lidocaine HCl (Xylocaine 2%) 0 mg IVPUSH ASDIRECTED PRN PRN Reason: Heart Metoprolol Tartrate (Lopressor) 37.5 mg PO BID [facility] Last Admin: 10/26/17 08:19 Dose: 37.5 mg Nitroglycerin (Nitrostat) 0.4 mg SL ASDIRECTED PRN PRN Reason: Heart Ondansetron HCl (Zofran Odt) 4 mg PO Q4HR PRN PRN Reason: Nausea Pantoprazole Sodium (Protonix Iv) 40 mg IVPUSH DAILY [facility] Last Admin: 10/26/17 08:18 Dose: 40 mg Prednisone (Prednisone) 30 mg PO DAILY [facility]YSTAL PRN Reason: Taper Stop: 11/05/17 08:59 Last Admin: 10/26/17 08:22 Dose: 30 mg Ramelteon (Rozerem) 8 mg PO BEDTIME PRN PRN Reason: Psychosis Sertraline HCl (Zoloft) 100 mg PO DAILY [facility] Last Admin: 10/26/17 08:17 Dose: 100 mg Sodium Chloride (Syrex Flush) 5 ml FLUSH Q8HR PRN PRN Reason: Keep Vein Open Tramadol HCl (Ultram) 50 mg PO TID PRN PRN Reason: Pain Last Admin: 10/25/17 10:36 Dose: 50 mg Triazolam (Triazolam) 0.25 mg PO BEDTIME PRN PRN Reason: INSOMNIA Last Admin: 10/25/17 20:19 Dose: 0.25 mg Discontinued Medications Al Hydroxide/Mg Hydroxide (Gi Cocktail) 45 ml PO ONETIME ONE Stop: 10/24/17 09:34 Last Admin: 10/24/17 09:37 Dose: 45 ml Al Hydroxide/Mg Hydroxide (Gi Cocktail) 45 ml PO ONETIME ONE Stop: 10/25/17 09:54 Last Admin: 10/25/17 10:37 Dose: 45 ml Ceftriaxone Sodium (Rocephin) 1 gm IVPUSH ONETIME ONE Stop: 10/21/17 13:38 Last Admin: 10/21/17 13:56 Dose: 1 gm Ceftriaxone Sodium (Rocephin) 1 gm IVPUSH Q24H [facility] Sodium Chloride (Normal Saline) 500 mls @ 500 mls/hr IV ASDIRECTED [facility] Last Admin: 10/21/17 12:16 Dose: 500 mls/hr Sodium Chloride (Normal Saline) 500 mls @ 500 mls/hr IV .BOLUS [facility] Last Admin: 10/21/17 13:29 Dose: 500 mls/hr Azithromycin 500 mg/ Sodium (Chloride) 250 mls @ 250 mls/hr IV ONETIME ONE Stop: 10/21/17 14:37 Last Admin: 10/21/17 14:32 Dose: 250 mls/hr Azithromycin 500 mg/ Sodium (Chloride) 250 mls @ 250 mls/hr IV Q24H [facility] Sodium Chloride (Normal Saline) 1,000 mls @ 50 mls/hr IV ASDIRECTED [facility] Last Admin: 10/25/17 04:57 Dose: 75 mls/hr Levofloxacin/Dextrose 250 mg/ (Premix) 50 mls @ 50 mls/hr IV Q24H [facility] Levofloxacin/Dextrose 500 mg/ (Premix) 100 mls @ 100 mls/hr IV Q24H [facility] Levofloxacin/Dextrose 250 mg/ (Premix) 50 mls @ 50 mls/hr IV Q48H [facility] Last Admin: 10/22/17 09:40 Dose: 50 mls/hr Levofloxacin/Dextrose 500 mg/ (Premix) 100 mls @ 100 mls/hr IV Q48H [facility] Last Admin: 10/22/17 10:57 Dose: 100 mls/hr Piperacillin/Tazobactam/ (Dextrose 3.375 gm/ Premix) 50 mls @ 100 mls/hr IV Q6H [facility] Last Admin: 10/25/17 08:49 Dose: 100 mls/hr Levofloxacin/Dextrose 250 mg/ (Premix) 50 mls @ 50 mls/hr IV Q48H [facility] Last Admin: 10/24/17 09:59 Dose: Not Given Levofloxacin/Dextrose 500 mg/ (Premix) 100 mls @ 100 mls/hr IV Q48H [facility] Potassium Chloride 20 meq/ (Premix) 100 mls @ 50 mls/hr IV ONETIME ONE Stop: 10/24/17 11:29 Last Admin: 10/24/17 09:50 Dose: 50 mls/hr Potassium Chloride 20 meq/ (Premix) 100 mls @ 50 mls/hr IV ONETIME ONE Stop: 10/24/17 15:59 Last Admin: 10/24/17 15:13 Dose: 50 mls/hr Potassium Chloride 20 meq/ (Premix) 100 mls @ 50 mls/hr IV ONETIME ONE Stop: 10/24/17 21:59 Last Admin: 10/24/17 19:21 Dose: 50 mls/hr Potassium Chloride 20 meq/ (Premix) 100 mls @ 50 mls/hr IV ONETIME ONE Stop: 10/25/17 11:45 Last Admin: 10/25/17 10:37 Dose: 50 mls/hr Potassium Chloride 20 meq/ (Premix) 100 mls @ 50 mls/hr IV ONETIME ONE Stop: 10/25/17 15:59 Last Admin: 10/25/17 13:31 Dose: 50 mls/hr Potassium Chloride 20 meq/ (Premix) 100 mls @ 50 mls/hr IV ONETIME ONE Stop: 10/25/17 11:46 Last Admin: 10/25/17 10:44 Dose: Not Given Methylprednisolone Sodium Succinate (Solu-Medrol) 60 mg IVPUSH DAILY [facility] Last Admin: 10/24/17 08:41 Dose: 60 mg Methylprednisolone Sodium Succinate (Solu-Medrol) 40 mg IVPUSH DAILY [facility] Last Admin: 10/25/17 08:33 Dose: 40 mg Metoprolol Tartrate (Lopressor) 25 mg PO BID [facility] Last Admin: 10/23/17 08:13 Dose: 25 mg Metoprolol Tartrate (Lopressor) 12.5 mg PO ONETIME ONE Stop: 10/23/17 10:06 Last Admin: 10/23/17 11:08 Dose: 12.5 mg Omeprazole (Omeprazole) 20 mg PO DAILY@0700 [facility] Last Admin: 10/22/17 06:07 Dose: 20 mg Ondansetron HCl (Zofran) 4 mg IVPUSH ONETIME ONE Stop: 10/22/17 12:46 Last Admin: 10/22/17 12:59 Dose: 4 mg Ondansetron HCl (Zofran) 4 mg IVPUSH Q6H PRN PRN Reason: Nausea/Vomiting Last Admin: 10/24/17 03:41 Dose: 4 mg Ondansetron HCl (Zofran Odt) 4 mg PO Q4HR [facility] Last Admin: 10/25/17 06:27 Dose: 4 mg *Q Meaningful Use (DIS) - VTE *Q VTE Criteria *Q: - Stroke *Q Stroke Criteria *Q: - AMI *Q AMI Criteria *Q:
[2017-10-27] MEDS ORDERED: FLU Vacc TS 2017-18 (65yr UP)/PF 180 MCG/0.5 ML Syringe IM ONE (10:00)
== END 2017-10-26 10:47 | disposition swing bed (61) | DRG 178 ==
LOC: KA.ED 11:26 → KA.MS 13:45
PROVIDERS: ADMIT Physician Assistant Surgical; ATTEND Nurse Practitioner Family
DX: J18.1 Lobar pneumonia, unspecified organism (principal); J44.9 Chronic obstructive pulmonary disease, unspecified; I10 Essential (primary) hypertension; J15.211 Pneumonia due to Methicillin susceptible Staphylococcus aureus; Z66 Do not resuscitate; N39.0 Urinary tract infection, site not specified; B96.20 Unspecified Escherichia coli [E. coli] as the cause of diseases classified elsewhere; J43.1 Panlobular emphysema; R11.0 Nausea; E86.0 Dehydration; R53.1 Weakness; R53.81 Other malaise; R00.0 Tachycardia, unspecified; E78.5 Hyperlipidemia, unspecified; F41.8 Other specified anxiety disorders; E87.6 Hypokalemia; R73.9 Hyperglycemia, unspecified; T38.0X5A Adverse effect of glucocorticoids and synthetic analogues, initial encounter; Y92.019 Unspecified place in single-family (private) house as the place of occurrence of the external cause; D47.3 Essential (hemorrhagic) thrombocythemia; R79.89 Other specified abnormal findings of blood chemistry; K21.9 Gastro-esophageal reflux disease without esophagitis; M19.90 Unspecified osteoarthritis, unspecified site; M81.0 Age-related osteoporosis without current pathological fracture; H35.30 Unspecified macular degeneration; G47.00 Insomnia, unspecified; F17.200 Nicotine dependence, unspecified, uncomplicated; Z99.81 Dependence on supplemental oxygen; Z88.8 Allergy status to other drugs, medicaments and biological substances; Z79.899 Other long term (current) drug therapy; Z91.041 Radiographic dye allergy status; Z85.3 Personal history of malignant neoplasm of breast; Z90.12 Acquired absence of left breast and nipple
CPT/HCPCS: 36415; 71020; 80053; 85025; 87804 ×2; 93005; 96361; 99285; J7040; J7050; 80048; 81001; 83605; 84484; 86140; 86318; 87040; 87070; 87077; 87086; 87088; 87186; 87205; 87324; 94640; 94640-76; 96360; 96374; 96375; 97110-GP; 97162-GP; 99284; A9270-GY; C9113; J0456; J0696; J1650; J1956; J2405; J2543; J2930; J3480; J7030

== ENCOUNTER 2017-10-26 09:15 | Inpatient (IN) | payer MEDICARE, BC ==
[2017-10-26] MEDS ORDERED: Lidocaine 2% 100 MG/5 ML Syringe IVPUSH PRN (10:43)
[2017-10-26] MEDS ORDERED: Ondansetron 4 MG Tab.DIS PO PRN (10:43)
[2017-10-26] MEDS ORDERED: Nitroglycerin 0.4 MG Tab.SL SL PRN (10:43)
[2017-10-26] MEDS ORDERED: Sodium Chloride 0.9% 5 ML Syringe FLUSH PRN ×2 (10:43)
[2017-10-26] MEDS ORDERED: Atropine 0.1 MG/ML 10 ML Syringe IVPUSH PRN (10:43)
[2017-10-26] MEDS ORDERED: EPINEPHrine 1:10,000 1 MG/10 ML Syringe IVPUSH PRN (10:43)
--- NOTE | 2017-10-26 11:15 | PCM.HP ---
H&P History of Present Illness - General Date of Service: 10/26/17 Admit Problem/Dx: Admission Diagnosis/Problem Admission Diagnosis/Problem Pneumonia Source of Information: Patient, Old Records, RN History Limitations: Reports: No Limitations - History of Present Illness Initial Comments - Free Text/Narative: Very pleasant 87-year-old female with long-standing history of end-stage emphysema was initially admitted into acute care status due exacerbation of her up truck to pulmonary disease concomittent pneumonia. She was started on IV antibiotics, increase oxygen with aggressive pulmonary toileting and has slowly made progress however due to decreased strength and endurance with multiple disease processes and her extreme decreased strength with experiencing shortness of breath she has been placed in swing bed therapy. The patient's PMI significant for panlobular emphysema, oxygen dependent, HTN, HLD, anxiety and depression, GERD, osteoporosis, macular degeneration, and breast cancer with left mastectomy. The patient lives alone, but reports she has children that check on her frequently. Her son Jimmy is concerned about her needing to go to either assisted living or long-term care however patient is adamant about eventually returning to her own home. Her initial workup in the ED on acute care demonstrated RLL pneumonia with an elevated white blood cell count. - Related Data Allergies/Adverse Reactions: Allergies Allergy/AdvReac Type Severity Reaction Status Date / Time Iodinated Contrast- Oral and Allergy Severe Nausea and Verified 10/21/17 12:27 IV Dye Vomiting rosuvastatin calcium Allergy Unknown Other Verified 10/21/17 12:27 [From Crestor] Home Medications: Home Meds Omeprazole 20 mg PO DAILY@0700 07/06/15 [History] Sertraline HCl 100 mg PO DAILY 07/06/15 [History] traMADol [Take Home: traMADol 50 MG, 4 Tab Pack] 50 mg PO TID PRN 07/06/15 [ History] Metoprolol Tartrate 25 mg PO BID 07/08/15 [History] amLODIPine [Norvasc] 10 mg PO DAILY #90 tablet 07/09/15 [Rx] Albuterol [Ventolin HFA] 2 puff INH Q4H PRN 08/10/15 [History] Albuterol/Ipratropium [DuoNeb 3.0-0.5 MG/3 ML] 3 ml NEB Q6HRRT PRN 10/19/15 [ History] Budesonide [Pulmicort] 0.5 mg IH BID 08/10/15 [History] Triazolam 0.25 mg PO BEDTIME PRN 08/29/16 [History] Fluticasone/Vilanterol [Breo Ellipta 100-25 MCG Inhalation Kit] 1 puff INH DAILY 10/21/17 [History] Past Medical History HEENT History: Reports: Cataract, Impaired Vision Cardiovascular History: Reports: Hypertension, SOB on Exertion Respiratory History: Reports: COPD, SOB Gastrointestinal History: Reports: None 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: Musculoskeletal History: Reports: Arthritis Psychiatric History: Reports: Depression Hematologic History: Reports: Blood Transfusion(s) Immunologic History: Reports: Immunosuppression Oncologic (Cancer) History: Reports: Breast - Infectious Disease History Infectious Disease History: Reports: Chicken Pox, Measles, Mumps - Past Surgical History HEENT Surgical History: Reports: Cataract Surgery Cardiovascular Surgical History: Reports: None Respiratory Surgical History: Reports: None GI Surgical History: Reports: Appendectomy, Cholecystectomy, Colonoscopy Female Surgical History: Reports: Hysterectomy, Other (See Below) Other Female Surgeries/Procedures: bladder tuck Neurological Surgical History: Reports: Other (See Below) Oncologic Surgical History: Reports: Mastectomy Other Oncologic Surgeries/Procedures: left side Social & Family History - Family History Family Medical History: Noncontributory - Tobacco Use Smoking Status *Q: Light Tobacco Smoker Years of Tobacco use: 70 Packs/Tins Daily: 0.5 Used Tobacco, but Quit: No Month Tobacco Last Used: Oct Second Hand Smoke Exposure: No - Caffeine Use Caffeine Use: Reports: Coffee - Recreational Drug Use Recreational Drug Use: No H&P Review of Systems - Review of Systems: Review Of Systems: See Below General: Reports: Weakness. Denies: Decreased Appetite HEENT: Reports: Sore Throat Pulmonary: Reports: Shortness of Breath. Denies: Pleuritic Chest Pain, Sputum, Hemoptysis Cardiovascular: Reports: Dyspnea on Exertion. Denies: Chest Pain, Palpitations , Orthopnea, PND, Edema Gastrointestinal: Reports: Diarrhea (C. difficile negative) Genitourinary: Reports: No Symptoms Musculoskeletal: Reports: No Symptoms Skin: Reports: Other (Areas of bruising) Psychiatric: Reports: Anxiety (Mild anxiety about being placed in swing bed) Neurological: Reports: Difficulty Walking, Weakness, Gait Disturbance Hematologic/Lymphatic: Reports: Easy Bleeding, Easy Bruising Immunologic: Reports: No Symptoms Exam - Exam Exam: See Below - Exam Quality Assessment: Supplemental Oxygen, DVT Prophylaxis General: Alert, Oriented, Mild Distress Neck: Supple. No: JVD Lungs: Decreased Breath Sounds, Crackles Cardiovascular: Regular Rate, Regular Rhythm, Normal S1, Normal S2 GI/Abdominal Exam: Soft, Non-Tender (Female) Exam: Deferred Rectal (Female) Exam: Deferred Back Exam: No: CVA Tenderness (L), CVA Tenderness (R) Extremities: No Pedal Edema Skin: Warm, Other (Multiple actinic keratosis upper extremities) Neurological: Cranial Nerves Intact Neuro Extensive - Mental Status: Alert, Oriented x3, Normal Mood/Affect Neuro Extensive - Motor, Sensory, Reflexes: CN II-XII Intact Psychiatric: Alert, Normal Affect, Normal Mood, Anxious - Patient Data Result Diagrams: 10/29/17 07:08 10/31/17 07:25 *Q Meaningful Use (ADM) - VTE *Q VTE Criteria *Q: - Stroke *Q Stroke Criteria *Q: - AMI *Q AMI Criteria *Q: Problem List Initiated/Reviewed/Updated: Yes Orders Last 24hrs: Active Orders 24 hr Category Date Time Status Patient Status [ADT] Routine ADT 10/26/17 10:47 Ordered Communication Order [RC] ROUTINE Care 10/26/17 10:43 Active Dietary Supplements [RC] BIDAC Care 10/26/17 10:43 Active Incentive Spirometry [RT Incentive Spirometry] [RC] Care 10/26/17 10:43 Active ASDIRECTED Intake and Output [RC] 1400,2200,0600 Care 10/26/17 10:43 Active Oxygen Therapy [RC] PRN Care 10/26/17 10:43 Active RT Aerosol Therapy [RC] ASDIRECTED Care 10/26/17 10:43 Active RT Aerosol Therapy [RC] ASDIRECTED Care 10/26/17 10:43 Active Ready for Discharge [RC] PER UNIT ROUTINE Care 10/26/17 10:43 Active Up With Assistance [RC] ASDIRECTED Care 10/26/17 10:43 Active Vital Signs [RC] Q4H Care 10/26/17 10:43 Active Consult to Physical Therapy [PT Evaluation and Cons 10/26/17 10:43 Active Treatment] [CONS] Routine Heart Healthy Diet [DIET] Diet 10/26/17 Lunch Active BASIC METABOLIC PANEL,BMP [CHEM] AM Lab 10/27/17 05:11 Ordered CBC WITH MANUAL DIFF [HEME] AM Lab 10/27/17 05:11 Ordered CULTURE BLOOD [BC] Stat Lab 10/26/17 10:43 Ordered CULTURE BLOOD [BC] Stat Lab 10/26/17 10:43 Ordered Acetaminophen [Tylenol] Med 10/26/17 10:43 Ordered 650 mg PO Q4H PRN Albuterol/Ipratropium [DuoNeb 3.0-0.5 MG/3 ML] Med 10/26/17 11:00 Ordered 3 ml NEB Q6HRRT Atropine [Atropine 0.1 MG/ML] Med 10/26/17 10:43 Ordered 0 mg IVPUSH ASDIRECTED PRN Atropine/Diphenoxylate [Lomotil 0.025-2.5 MG] Med 10/26/17 10:43 Ordered 0.5 - 1 tab PO Q2H PRN Budesonide [Pulmicort] Med 10/26/17 20:00 Ordered 0.5 mg INH BIDRT Calcium Carbonate [Tums] Med 10/26/17 21:00 Ordered 500 mg PO BID EPINEPHrine [EPINEPHrine 1:10,000] Med 10/26/17 10:43 Ordered 1 mg IVPUSH ASDIRECTED PRN Enoxaparin [Lovenox] Med 10/27/17 09:00 Ordered 30 mg SUBCUT DAILY Fluticasone/Vilanterol [Breo Ellipta 100-25 MCG Med 10/27/17 09:00 Hold Inhalation Kit] 0 each IH DAILY Levofloxacin/Dextrose 5%-Water [Levaquin in D5W 250 MG/ Med 10/26/17 12:00 Ordered 50 ML] 250 mg Premix Bag 1 bag IV Q48H Levofloxacin/Dextrose 5%-Water [Levaquin in D5W 500 MG/ Med 10/26/17 13:00 Ordered 100 ML] 500 mg Premix Bag 1 bag IV Q48H Lidocaine 2% [Xylocaine 2%] Med 10/26/17 10:43 Ordered 0 mg IVPUSH ASDIRECTED PRN Metoprolol Tartrate [Lopressor] Med 10/26/17 21:00 Ordered 37.5 mg PO BID Nitroglycerin [Nitrostat] Med 10/26/17 10:43 Ordered 0.4 mg SL ASDIRECTED PRN Omeprazole Med 10/27/17 09:00 Ordered 20 mg PO DAILY Ondansetron [Zofran ODT] Med 10/26/17 10:43 Ordered 4 mg PO Q4HR PRN Potassium Bicarb/Potassium Chl [Potassium Chloride, Med 10/26/17 11:00 Ordered Effervescent] 25 meq PO DAILY Ramelteon [Rozerem] Med 10/26/17 10:43 Ordered 8 mg PO BEDTIME PRN Sertraline [Zoloft] Med 10/27/17 09:00 Ordered 100 mg PO DAILY Sodium Chloride 0.9% [Syrex Flush] Med 10/26/17 10:43 Ordered 5 ml FLUSH Q8HR PRN Sodium Chloride 0.9% [Syrex Flush] Med 10/26/17 10:43 Ordered 5 ml FLUSH Q8HR PRN Triazolam Med 10/26/17 10:43 Ordered 0.25 mg PO BEDTIME PRN amLODIPine [Norvasc] Med 10/27/17 09:00 Ordered 10 mg PO DAILY predniSONE Med 10/27/17 09:00 Ordered 30 mg PO DAILY traMADol [Ultram] Med 10/26/17 10:43 Ordered 50 mg PO TID PRN Blood Culture x2 Reflex Set [OM.PC] Stat Oth 10/26/17 10:43 Ordered Convert IV to Saline Lock [OM.PC] Routine Oth 10/26/17 10:43 Ordered Isolation [COMM] Routine Oth 10/26/17 10:43 Ordered Code Status [Resuscitation Status] Routine Resus Stat 10/26/17 10:48 Ordered Medication Orders Acetaminophen (Tylenol) 650 mg PO Q4H PRN PRN Reason: pain , fever Albuterol/Ipratropium (Duoneb 3.0-0.5 Mg/3 Ml) 3 ml NEB Q6HRRT [facility] Amlodipine Besylate (Norvasc) 10 mg PO DAILY [facility] Atropine Sulfate (Atropine 0.1 Mg/Ml) 0 mg IVPUSH ASDIRECTED PRN PRN Reason: Heart Budesonide (Pulmicort) 0.5 mg INH BIDRT [facility] Calcium Carbonate/Glycine (Tums) 500 mg PO BID [facility] Diphenoxylate HCl/Atropine (Lomotil 0.025-2.5 Mg) 0.5 - 1 tab PO Q2H PRN PRN Reason: Diarrhea Enoxaparin Sodium (Lovenox) 30 mg SUBCUT DAILY [facility] Epinephrine HCl (Epinephrine 1:10,000) 1 mg IVPUSH ASDIRECTED PRN PRN Reason: Heart Levofloxacin/Dextrose 250 mg/ (Premix) 50 mls @ 50 mls/hr IV Q48H [facility] Levofloxacin/Dextrose 500 mg/ (Premix) 100 mls @ 100 mls/hr IV Q48H [facility] Lidocaine HCl (Xylocaine 2%) 0 mg IVPUSH ASDIRECTED PRN PRN Reason: Heart Metoprolol Tartrate (Lopressor) 37.5 mg PO BID [facility] Nitroglycerin (Nitrostat) 0.4 mg SL ASDIRECTED PRN PRN Reason: Heart Omeprazole (Omeprazole) 20 mg PO DAILY [facility] Ondansetron HCl (Zofran Odt) 4 mg PO Q4HR PRN PRN Reason: Nausea Potassium Bicarb/Potassium Chloride (Potassium Chloride, Effervescent) 25 meq PO DAILY [facility] Prednisone (Prednisone) 30 mg PO DAILY [facility] PRN Reason: Taper Stop: 11/05/17 08:59 Ramelteon (Rozerem) 8 mg PO BEDTIME PRN PRN Reason: Psychosis Sertraline HCl (Zoloft) 100 mg PO DAILY [facility] Sodium Chloride (Syrex Flush) 5 ml FLUSH Q8HR PRN PRN Reason: Keep Vein Open Sodium Chloride (Syrex Flush) 5 ml FLUSH Q8HR PRN PRN Reason: Keep Vein Open Tramadol HCl (Ultram) 50 mg PO TID PRN PRN Reason: Pain Triazolam (Triazolam) 0.25 mg PO BEDTIME PRN PRN Reason: INSOMNIA Assessment/Plan Comment:: HISTORY OF PRESENT ILLNESS Very pleasant 87-year-old female with long-standing history of end-stage emphysema was initially admitted into acute care status due exacerbation of her up truck to pulmonary disease concomittent pneumonia. She was started on IV antibiotics, increase oxygen with aggressive pulmonary toileting and has slowly made progress however due to decreased strength and endurance with multiple disease processes and her extreme decreased strength with experiencing shortness of breath she has been placed in swing bed therapy. The patient's PMI significant for panlobular emphysema, oxygen dependent, HTN, HLD, anxiety and depression, GERD, osteoporosis, macular degeneration, and breast cancer with left mastectomy. The patient lives alone, but reports she has children that check on her frequently. Her son Jimmy is concerned about her needing to go to either assisted living or long-term care however patient is adamant about eventually returning to her own home. Her initial workup in the ED on acute care demonstrated RLL pneumonia with an elevated white blood cell count. Primary Impression Debilitation, weakness. Physical therapy, Pt has been walking to the bathroom with nursing however easily dyspneic. She does have some instability in standing and poorly tolerates ambulation other than around her room with increased O2. Pneumonia, CAP, POA, pseudomonas risk, although increased oxygen requirements, appears to be clinically improving. afebrile, MAP good, nontoxic in appearance. qSOFA 1/3 (however does have underlying pulmonary disease) patient admits not doing ICS as frequently as instructed. Discontinue broad-spectrum antibiotics. Continue levaquin. Continue duonebs, IS, and oxygen. Preliminary sputum culture showing possible Vancomycin resistant staph aureus. BC surveillance no growth, inflammatory markers trending down. Panlobular emphysema with acute exacerbation, clinically improving. Changed to PO tapered prednisone. On admission on dual ICS -- hold Breo Ellipta, and continue with pulmicort. Diarrhea, monitor K+ levels, C. difficile negative, Lomotil Thrombocytosis, mild and reactive Elevated troponin, now normal. did have CRP elevated on admission. No ischemic picture. Discontinue telemetry. Potassium now normal. Hypokalemia, resolved. By mouth supplementation now. Nausea, significantly improved with GI cocktail and scheduled 5HT-3--changed now to PRN. On PPI, Chronic 02 therapy. RT, Requiring increased need at present. ICS Dehydration, resolved. Tolerating advanced diet, Saline lock IV. May be removed soon Asymptomatic bacteriuria, improving symptoms. crossed covered with Levaquin. Elevated AST. 45--normalized ratio Steroid-induced hyperglycemia Elevated glucose, no history DM. Mild FEN; saline lock, potassium now normal, tolerating by mouth diet DVT prophylaxis, Lovenox CODE STATUS, DO NOT RESUSCITATE SECONDARY ASSESSMENT/PLAN: Hypertension. Continue norvasc. Lopressor adjusted as above. History of hyperlipidemia. diet controlled, LDL 89 (2015). Anxiety and depression. Continue zoloft. GERD. IV protonix. History of osteoporosis. Macular degeneration. History of breast cancer, s/p left mastectomy. Chronic low back pain. Diffuse DJD/osteoarthritis. Tramadol PRN. Insomnia, primary. Continue triazolam PRN. DVT prophylaxis. On lovenox.
[2017-10-26] MEDS: Potassium Bicarbonate/Potassium Chloride 25 MEQ Tab.Eff PO SCH (11:55)
[2017-10-26] MEDS ORDERED: Levofloxacin/Dextrose 5%-Water 50 ML IV SCH (12:00)
[2017-10-26] MEDS ORDERED: Levofloxacin/Dextrose 5%-Water 100 ML IV SCH (13:00)
[2017-10-26] MEDS: traMADol 50 MG Tab PO PRN ×2 (13:16→21:01)
[2017-10-26] MEDS: Acetaminophen 325 MG Tab PO PRN (15:41)
[2017-10-26] MEDS: Albuterol/Ipratropium 3.0-0.5 MG/3 ML Neb Soln NEB SCH ×2 (16:55→22:00)
[2017-10-26] MEDS: Calcium Carbonate 500 MG Tab.Chew PO SCH (18:06)
[2017-10-26] MEDS: Budesonide 0.5 MG/2 ML Neb Susp INH SCH (19:59)
[2017-10-26] MEDS: Metoprolol Tartrate 25 MG Tab PO SCH (21:01)
[2017-10-27] MEDS: Albuterol/Ipratropium 3.0-0.5 MG/3 ML Neb Soln NEB SCH ×4 (05:34→22:09)
[2017-10-27] MEDS: traMADol 50 MG Tab PO PRN ×2 (05:54→14:42)
[2017-10-27] MEDS: Omeprazole 20 MG Cap.CR PO SCH (07:48)
[2017-10-27] MEDS: Budesonide 0.5 MG/2 ML Neb Susp INH SCH ×2 (07:56→20:42)
[2017-10-27] MEDS: Calcium Carbonate 500 MG Tab.Chew PO SCH ×2 (08:29→17:50)
[2017-10-27] MEDS: Potassium Bicarbonate/Potassium Chloride 25 MEQ Tab.Eff PO SCH (08:29)
[2017-10-27] MEDS: Metoprolol Tartrate 25 MG Tab PO SCH ×2 (08:30→20:41)
[2017-10-27] MEDS: Enoxaparin 30 MG/0.3 ML Syringe SUBCUT SCH (08:32)
[2017-10-27] MEDS: amLODIPine 5 MG Tab PO SCH (08:33)
[2017-10-27] MEDS: Sertraline 50 MG Tab PO SCH (08:34)
[2017-10-27] MEDS: predniSONE 10 MG Tab PO SCH (08:34)
[2017-10-27] MEDS ORDERED: FLU Vacc TS 2017-18 (65yr UP)/PF 180 MCG/0.5 ML Syringe IM ONE (10:00)
[2017-10-28] MEDS: Albuterol/Ipratropium 3.0-0.5 MG/3 ML Neb Soln NEB SCH ×4 (05:43→23:25)
[2017-10-28] MEDS: Omeprazole 20 MG Cap.CR PO SCH (07:21)
[2017-10-28] MEDS: Budesonide 0.5 MG/2 ML Neb Susp INH SCH ×2 (07:22→20:25)
[2017-10-28] MEDS: Enoxaparin 30 MG/0.3 ML Syringe SUBCUT SCH (08:14)
[2017-10-28] MEDS: Metoprolol Tartrate 25 MG Tab PO SCH ×2 (08:15→20:37)
[2017-10-28] MEDS: amLODIPine 5 MG Tab PO SCH (08:16)
[2017-10-28] MEDS: predniSONE 10 MG Tab PO SCH (08:16)
[2017-10-28] MEDS: Calcium Carbonate 500 MG Tab.Chew PO SCH ×2 (08:16→18:09)
[2017-10-28] MEDS: Potassium Bicarbonate/Potassium Chloride 25 MEQ Tab.Eff PO SCH (08:17)
[2017-10-28] MEDS: Sertraline 50 MG Tab PO SCH (08:17)
[2017-10-28] MEDS: [UNRECOGNIZED DRUG - OTHER] IH SCH (08:29)
[2017-10-28] MEDS: VILANTEROL IH SCH (08:29)
[2017-10-28] MEDS ORDERED: FLU Vacc TS 2017-18 (65yr UP)/PF 180 MCG/0.5 ML Syringe IM ONE (10:00)
[2017-10-28] MEDS: Atropine/Diphenoxylate 0.025-2.5 MG Tab PO PRN (11:13)
[2017-10-28] MEDS: traMADol 50 MG Tab PO PRN ×3 (11:13→20:37)
[2017-10-28] MEDS: Acetaminophen 325 MG Tab PO PRN ×2 (13:12→20:37)
[2017-10-28] MEDS: Levofloxacin/Dextrose 5%-Water 50 ML IV SCH (13:49)
[2017-10-28] MEDS: Levofloxacin/Dextrose 5%-Water 100 ML IV SCH (14:57)
[2017-10-29] MEDS: Albuterol/Ipratropium 3.0-0.5 MG/3 ML Neb Soln NEB SCH ×4 (05:32→22:25)
[2017-10-29] MEDS: Omeprazole 20 MG Cap.CR PO SCH (07:13)
[2017-10-29] MEDS: Budesonide 0.5 MG/2 ML Neb Susp INH SCH ×2 (07:13→19:36)
[2017-10-29] MEDS: traMADol 50 MG Tab PO PRN ×3 (09:43→20:46)
[2017-10-29] MEDS: VILANTEROL IH SCH (09:43)
[2017-10-29] MEDS: [UNRECOGNIZED DRUG - OTHER] IH SCH (09:43)
[2017-10-29] MEDS: Calcium Carbonate 500 MG Tab.Chew PO SCH ×2 (09:44→17:18)
[2017-10-29] MEDS: Potassium Bicarbonate/Potassium Chloride 25 MEQ Tab.Eff PO SCH (09:44)
[2017-10-29] MEDS: predniSONE 10 MG Tab PO SCH (09:44)
[2017-10-29] MEDS: Metoprolol Tartrate 25 MG Tab PO SCH ×2 (09:45→20:45)
[2017-10-29] MEDS: Enoxaparin 30 MG/0.3 ML Syringe SUBCUT SCH (09:46)
[2017-10-29] MEDS: Sertraline 50 MG Tab PO SCH (09:46)
[2017-10-29] MEDS: amLODIPine 5 MG Tab PO SCH (09:47)
[2017-10-29] MEDS: Acetaminophen 325 MG Tab PO PRN ×2 (12:56→20:46)
[2017-10-30] MEDS: Albuterol/Ipratropium 3.0-0.5 MG/3 ML Neb Soln NEB SCH ×4 (06:00→23:21)
[2017-10-30] MEDS: Budesonide 0.5 MG/2 ML Neb Susp INH SCH (07:11)
[2017-10-30] MEDS: traMADol 50 MG Tab PO PRN ×2 (07:12→15:49)
[2017-10-30] MEDS: Omeprazole 20 MG Cap.CR PO SCH (07:52)
[2017-10-30] MEDS: Calcium Carbonate 500 MG Tab.Chew PO SCH ×2 (07:52→18:13)
[2017-10-30] MEDS: VILANTEROL IH SCH (09:49)
[2017-10-30] MEDS: Sertraline 50 MG Tab PO SCH (09:49)
[2017-10-30] MEDS: [UNRECOGNIZED DRUG - OTHER] IH SCH (09:49)
[2017-10-30] MEDS: Potassium Bicarbonate/Potassium Chloride 25 MEQ Tab.Eff PO SCH (09:49)
[2017-10-30] MEDS: Metoprolol Tartrate 25 MG Tab PO SCH ×2 (09:50→20:38)
[2017-10-30] MEDS: amLODIPine 5 MG Tab PO SCH (09:50)
[2017-10-30] MEDS: Enoxaparin 30 MG/0.3 ML Syringe SUBCUT SCH (09:51)
[2017-10-30] MEDS: predniSONE 10 MG Tab PO SCH (09:52)
[2017-10-30] MEDS: Acetaminophen 325 MG Tab PO PRN ×2 (11:03→20:47)
[2017-10-30] MEDS: Levofloxacin/Dextrose 5%-Water 50 ML IV SCH (15:37)
[2017-10-30] MEDS: Levofloxacin/Dextrose 5%-Water 100 ML IV SCH (16:56)
[2017-10-31] MEDS: Albuterol/Ipratropium 3.0-0.5 MG/3 ML Neb Soln NEB SCH ×4 (06:03→23:07)
[2017-10-31] MEDS: Omeprazole 20 MG Cap.CR PO SCH (07:35)
[2017-10-31] MEDS: Sertraline 50 MG Tab PO SCH (08:50)
[2017-10-31] MEDS: traMADol 50 MG Tab PO PRN ×3 (08:50→20:52)
[2017-10-31] MEDS: Enoxaparin 30 MG/0.3 ML Syringe SUBCUT SCH (08:50)
[2017-10-31] MEDS: predniSONE 10 MG Tab PO SCH (08:51)
[2017-10-31] MEDS: Metoprolol Tartrate 25 MG Tab PO SCH ×2 (08:51→20:51)
[2017-10-31] MEDS: Calcium Carbonate 500 MG Tab.Chew PO SCH ×2 (08:51→17:56)
[2017-10-31] MEDS: amLODIPine 5 MG Tab PO SCH (08:51)
[2017-10-31] MEDS: VILANTEROL IH SCH (09:40)
[2017-10-31] MEDS: [UNRECOGNIZED DRUG - OTHER] IH SCH (09:40)
[2017-10-31] MEDS: Acetaminophen 325 MG Tab PO PRN (09:50)
[2017-10-31] MEDS: Acetaminophen 325 MG Tab PO SCH ×3 (14:05→23:07)
[2017-10-31] MEDS: Atropine/Diphenoxylate 0.025-2.5 MG Tab PO PRN (15:53)
[2017-10-31] MEDS: B.Bifidum/B.Longum/L.Acidophilus/L.Rhamnosus (Probiotic) Cap PO SCH (20:51)
[2017-11-01] MEDS: Acetaminophen 325 MG Tab PO SCH ×6 (03:45→22:32)
[2017-11-01] MEDS: Albuterol/Ipratropium 3.0-0.5 MG/3 ML Neb Soln NEB SCH ×4 (06:01→22:32)
[2017-11-01] MEDS: Omeprazole 20 MG Cap.CR PO SCH (07:50)
[2017-11-01] MEDS: Calcium Carbonate 500 MG Tab.Chew PO SCH ×2 (07:50→18:12)
[2017-11-01] MEDS: Sertraline 50 MG Tab PO SCH (08:38)
[2017-11-01] MEDS: predniSONE 10 MG Tab PO SCH (08:38)
[2017-11-01] MEDS: Enoxaparin 30 MG/0.3 ML Syringe SUBCUT SCH (08:39)
[2017-11-01] MEDS: Metoprolol Tartrate 25 MG Tab PO SCH ×2 (08:39→20:57)
[2017-11-01] MEDS: B.Bifidum/B.Longum/L.Acidophilus/L.Rhamnosus (Probiotic) Cap PO SCH ×2 (08:39→20:57)
[2017-11-01] MEDS: amLODIPine 5 MG Tab PO SCH (08:40)
[2017-11-01] MEDS: VILANTEROL IH SCH (08:40)
[2017-11-01] MEDS: [UNRECOGNIZED DRUG - OTHER] IH SCH (08:40)
[2017-11-01] MEDS: traMADol 50 MG Tab PO PRN ×2 (10:12→18:12)
--- NOTE | 2017-11-01 11:07 | PCM.PN ---
- General Info Date of Service: 11/01/17 Functional Status: Reports: Tolerating Diet, Urinating, New Symptoms ( excoriated perineum), Incentive Spirometry. Denies: Pain Controlled, Ambulating - Review of Systems General: Reports: Weakness. Denies: Fever HEENT: Reports: No Symptoms Pulmonary: Reports: Shortness of Breath (shortness of breath much improved). Denies: Pleuritic Chest Pain, Cough, Sputum Cardiovascular: Reports: Dyspnea on Exertion. Denies: Chest Pain, Orthopnea, PND, Edema Gastrointestinal: Reports: No Symptoms Genitourinary: Reports: No Symptoms Musculoskeletal: Reports: Back Pain (acute on chronic back pain) Skin: Reports: Rash (buttocks and perineal area) Neurological: Reports: No Symptoms Psychiatric: Reports: No Symptoms - Patient Data Vitals - Most Recent: Last Vital Signs Temp 98.0 F 11/01/17 06:46 Pulse 84 11/01/17 08:39 Resp 16 11/01/17 06:46 BP 128/69 11/01/17 08:40 Pulse Ox 95 11/01/17 06:46 Weight - Most Recent: 101 lb 13.657 oz I&O - Last 24 Hours: Intake & Output 10/31/17 11/01/17 11/01/17 22:59 06:59 14:59 Intake Total 740 100 Balance 740 100 Med Orders - Current: Current Medications Acetaminophen (Tylenol) 650 mg PO Q4HR [facility] Last Admin: 11/01/17 06:18 Dose: 650 mg Albuterol/Ipratropium (Duoneb 3.0-0.5 Mg/3 Ml) 3 ml NEB Q6HRRT [facility] Last Admin: 11/01/17 10:51 Dose: 3 ml Amlodipine Besylate (Norvasc) 10 mg PO DAILY [facility] Last Admin: 11/01/17 08:40 Dose: 10 mg Calcium Carbonate/Glycine (Tums) 500 mg PO BIDMEALS [facility] Last Admin: 11/01/17 07:50 Dose: 500 mg Diphenoxylate HCl/Atropine (Lomotil 0.025-2.5 Mg) 0.5 - 1 tab PO Q2H PRN PRN Reason: Diarrhea Last Admin: 10/31/17 15:53 Dose: 1 tab Enoxaparin Sodium (Lovenox) 30 mg SUBCUT DAILY [facility] Last Admin: 11/01/17 08:39 Dose: 30 mg Vancomycin HCl 0.75 gm/ Sodium (Chloride) 265 mls @ 212 mls/hr IV Q24H [facility] Last Admin: 10/31/17 13:06 Dose: 212 mls/hr Levofloxacin/Dextrose (Levaquin In D5w 250 Mg/50 Ml) 50 mls @ 50 mls/hr IV Q48H [facility] Last Admin: 10/30/17 15:37 Dose: 50 mls/hr Levofloxacin/Dextrose (Levaquin In D5w 500 Mg/100 Ml) 100 mls @ 100 mls/hr IV Q48H [facility] Last Admin: 10/30/17 16:56 Dose: 100 mls/hr Lactobacillus Acidophilus/Rhamnosus (Multi-Allison Plus) 1 cap PO BID [facility] Last Admin: 11/01/17 08:39 Dose: 1 cap Metoprolol Tartrate (Lopressor) 37.5 mg PO BID [facility] Last Admin: 11/01/17 08:39 Dose: 37.5 mg Omeprazole (Omeprazole) 20 mg PO ACBREAKFAST [facility] Last Admin: 11/01/17 07:50 Dose: 20 mg Ondansetron HCl (Zofran Odt) 4 mg PO Q4H PRN PRN Reason: Nausea Last Admin: 10/30/17 11:03 Dose: 4 mg Prednisone (Prednisone) 10 mg PO DAILY [facility] PRN Reason: Taper Stop: 11/05/17 08:59 Last Admin: 11/01/17 08:38 Dose: 10 mg Ramelteon (Rozerem) 8 mg PO BEDTIME PRN PRN Reason: Psychosis Sertraline HCl (Zoloft) 100 mg PO DAILY [facility] Last Admin: 11/01/17 08:38 Dose: 100 mg Sodium Chloride (Syrex Flush) 5 ml FLUSH Q8HR PRN PRN Reason: Keep Vein Open Tramadol HCl (Ultram) 50 mg PO TID PRN PRN Reason: Pain Last Admin: 11/01/17 10:12 Dose: 50 mg Triazolam (Triazolam) 0.25 mg PO BEDTIME PRN PRN Reason: INSOMNIA Last Admin: 10/31/17 20:53 Dose: 0.25 mg Vancomycin HCl (Pharmacy To Dose - Vancomycin) 1 dose .XX ASDIRECTED [facility] Discontinued Medications Acetaminophen (Tylenol) 650 mg PO Q4H PRN PRN Reason: pain , fever Last Admin: 10/31/17 09:50 Dose: 650 mg Budesonide (Pulmicort) 0.5 mg INH BIDRT [facility] Last Admin: 10/30/17 07:11 Dose: 0.5 mg Levofloxacin/Dextrose (Levaquin In D5w 250 Mg/50 Ml) 50 mls @ 50 mls/hr IV Q48H [facility] Last Admin: 10/26/17 11:55 Dose: 50 mls/hr Levofloxacin/Dextrose (Levaquin In D5w 500 Mg/100 Ml) 100 mls @ 100 mls/hr IV Q48H [facility] Last Admin: 10/26/17 13:09 Dose: 100 mls/hr Influenza Virus Vaccine (Fluzone High-Dose ) 180 mcg IM .ONCE ONE Stop: 10/28/17 10:01 Influenza Virus Vaccine (Fluzone High-Dose ) 180 mcg IM .ONCE ONE Stop: 10/27/17 10:01 Last Admin: 10/27/17 11:22 Dose: 180 mcg Potassium Bicarb/Potassium Chloride (Potassium Chloride, Effervescent) 25 meq PO DAILY [facility] Last Admin: 10/30/17 09:49 Dose: 25 meq - Exam Quality Assessment: Supplemental Oxygen General: Alert, Oriented, Cooperative Neck: No JVD Lungs: Decreased Breath Sounds. No: Crackles, Rhonchi, Wheezing Cardiovascular: Regular Rate, Regular Rhythm (Female) Exam: Deferred Back Exam: No: CVA Tenderness (L), CVA Tenderness (R) Extremities: No Pedal Edema Skin: Rash (erythremia to buttocks) Neurological: No New Focal Deficit Psy/Mental Status: Alert, Normal Affect, Normal Mood - Problem List Review Problem List Initiated/Reviewed/Updated: Yes - My Orders Last 24 Hours: My Active Orders 10/31/17 14:00 Acetaminophen [Tylenol] 650 mg PO Q4HR 10/31/17 21:00 B.Bif/B.Long/L.Acidoph/L.Rhamn [Multi-Allison Plus] 1 cap PO BID 11/02/17 12:00 CREATININE W/GFR [CHEM] Routine VANCOMYCIN TROUGH [CHEM] Routine - Plan Plan:: HISTORY OF PRESENT ILLNESS Very pleasant 87-year-old female with long-standing history of end-stage emphysema was initially admitted into acute care status due exacerbation of her up truck to pulmonary disease concomittent pneumonia. She was started on IV antibiotics, increase oxygen with aggressive pulmonary toileting and has slowly made progress however due to decreased strength and endurance with multiple disease processes and her extreme decreased strength with experiencing shortness of breath she has been placed in swing bed therapy. The patient's PMI significant for panlobular emphysema, oxygen dependent, HTN, HLD, anxiety and depression, GERD, osteoporosis, macular degeneration, and breast cancer with left mastectomy. The patient lives alone, but reports she has children that check on her frequently. Her son Jimmy is concerned about her needing to go to either assisted living or long-term care however patient is adamant about eventually returning to her own home. Her initial workup in the ED on acute care demonstrated RLL pneumonia with an elevated white blood cell count. Primary Impression Debilitation, weakness. Physical therapy, Functionally, pt is improving with therapy, set-back this week due to flu-like symptoms. She still lacks some balance and activity tolerance, which puts her at increased risk of readmit if discharged prematurely. Care conference yesterday DC planning is set for 2-4 weeks, dependent upon how much she improves and dependent upon which DC facility /home the family/pt choose. leaning towards assisted living facility. Diffuse DJD/osteoarthritis. Tramadol PRN. Ultram/Tylenol Skin breakdown, perineal/buttocks, K med Pneumonia, CAP, POA, pseudomonas risk, appears clinically improved. Will repeat chest x-ray today to see if she can be discontinued from antibiotics. CBC in the a.m. afebrile, MAP good, nontoxic in appearance. qSOFA 1/3 (however does have underlying pulmonary disease) Continue duonebs, IS, and oxygen. Panlobular emphysema with acute exacerbation, great improvement from her respiratory standpoint. admission on dual ICS -- Now back on Breo Ellipta, CODE STATUS, DO NOT RESUSCITATE SECONDARY ASSESSMENT/PLAN: Hypertension. Continue norvasc. Lopressor adjusted as above. History of hyperlipidemia. diet controlled, LDL 89 (2014). Anxiety and depression. Continue zoloft. GERD. PO PPI. History of osteoporosis. Macular degeneration. History of breast cancer, s/p left mastectomy. Chronic low back pain. Diffuse DJD/osteoarthritis. Tramadol PRN. Insomnia, primary. Continue triazolam PRN. DVT prophylaxis. On lovenox.
[2017-11-01] MEDS: Levofloxacin/Dextrose 5%-Water 100 ML IV SCH (15:04)
[2017-11-01] MEDS: Levofloxacin/Dextrose 5%-Water 50 ML IV SCH (16:20)
[2017-11-01] MEDS: Zinc Oxide/Eucerin/Nystatin/Karaya 237 ML JAR TOP SCH ×2 (17:18→20:57)
[2017-11-02] MEDS: Acetaminophen 325 MG Tab PO SCH ×6 (03:30→23:18)
[2017-11-02] MEDS: Albuterol/Ipratropium 3.0-0.5 MG/3 ML Neb Soln NEB SCH ×4 (05:48→23:18)
[2017-11-02] MEDS: traMADol 50 MG Tab PO PRN ×2 (06:06→14:10)
[2017-11-02] MEDS: Omeprazole 20 MG Cap.CR PO SCH (07:45)
[2017-11-02] MEDS: [UNRECOGNIZED DRUG - OTHER] IH SCH (08:37)
[2017-11-02] MEDS: VILANTEROL IH SCH (08:37)
[2017-11-02] MEDS: Zinc Oxide/Eucerin/Nystatin/Karaya 237 ML JAR TOP SCH ×2 (08:41→23:18)
[2017-11-02] MEDS: Calcium Carbonate 500 MG Tab.Chew PO SCH ×2 (08:41→17:51)
[2017-11-02] MEDS: Enoxaparin 30 MG/0.3 ML Syringe SUBCUT SCH (08:41)
[2017-11-02] MEDS: Metoprolol Tartrate 25 MG Tab PO SCH ×2 (08:42→21:20)
[2017-11-02] MEDS: Sertraline 50 MG Tab PO SCH (08:42)
[2017-11-02] MEDS: predniSONE 10 MG Tab PO SCH (08:42)
[2017-11-02] MEDS: amLODIPine 5 MG Tab PO SCH (08:42)
[2017-11-02] MEDS: B.Bifidum/B.Longum/L.Acidophilus/L.Rhamnosus (Probiotic) Cap PO SCH ×2 (08:42→21:19)
[2017-11-03] MEDS: Acetaminophen 325 MG Tab PO SCH ×6 (03:07→23:28)
[2017-11-03] MEDS: Albuterol/Ipratropium 3.0-0.5 MG/3 ML Neb Soln NEB SCH ×4 (05:56→23:28)
[2017-11-03] MEDS: Omeprazole 20 MG Cap.CR PO SCH (07:50)
[2017-11-03] MEDS: Sertraline 50 MG Tab PO SCH (08:33)
[2017-11-03] MEDS: B.Bifidum/B.Longum/L.Acidophilus/L.Rhamnosus (Probiotic) Cap PO SCH ×2 (08:33→20:49)
[2017-11-03] MEDS: Calcium Carbonate 500 MG Tab.Chew PO SCH ×2 (08:33→17:06)
[2017-11-03] MEDS: Metoprolol Tartrate 25 MG Tab PO SCH ×2 (08:34→20:50)
[2017-11-03] MEDS: amLODIPine 5 MG Tab PO SCH (08:35)
[2017-11-03] MEDS: predniSONE 10 MG Tab PO SCH (08:35)
[2017-11-03] MEDS: traMADol 50 MG Tab PO PRN ×2 (08:38→17:12)
[2017-11-03] MEDS: Zinc Oxide/Eucerin/Nystatin/Karaya 237 ML JAR TOP SCH ×2 (08:39→20:49)
[2017-11-03] MEDS: Atropine/Diphenoxylate 0.025-2.5 MG Tab PO PRN (09:11)
[2017-11-03] MEDS: [UNRECOGNIZED DRUG - OTHER] IH SCH (10:19)
[2017-11-03] MEDS: VILANTEROL IH SCH (10:19)
[2017-11-04] MEDS: Acetaminophen 325 MG Tab PO SCH ×6 (03:57→23:29)
[2017-11-04] MEDS: Albuterol/Ipratropium 3.0-0.5 MG/3 ML Neb Soln NEB SCH ×4 (05:52→23:29)
[2017-11-04] MEDS: Omeprazole 20 MG Cap.CR PO SCH (07:45)
[2017-11-04] MEDS: [UNRECOGNIZED DRUG - OTHER] IH SCH (08:46)
[2017-11-04] MEDS: VILANTEROL IH SCH (08:46)
[2017-11-04] MEDS: predniSONE 10 MG Tab PO SCH (08:46)
[2017-11-04] MEDS: Sertraline 50 MG Tab PO SCH (08:48)
[2017-11-04] MEDS: amLODIPine 5 MG Tab PO SCH (08:48)
[2017-11-04] MEDS: Metoprolol Tartrate 25 MG Tab PO SCH ×2 (08:49→21:08)
[2017-11-04] MEDS: B.Bifidum/B.Longum/L.Acidophilus/L.Rhamnosus (Probiotic) Cap PO SCH ×2 (08:49→21:08)
[2017-11-04] MEDS: Calcium Carbonate 500 MG Tab.Chew PO SCH ×2 (08:49→17:13)
[2017-11-04] MEDS: Zinc Oxide/Eucerin/Nystatin/Karaya 237 ML JAR TOP SCH ×2 (08:50→21:09)
[2017-11-04] MEDS: traMADol 50 MG Tab PO PRN (10:44)
[2017-11-05] MEDS: Acetaminophen 325 MG Tab PO SCH ×6 (03:32→23:27)
[2017-11-05] MEDS: Albuterol/Ipratropium 3.0-0.5 MG/3 ML Neb Soln NEB SCH ×4 (05:48→23:27)
[2017-11-05] MEDS: Omeprazole 20 MG Cap.CR PO SCH (07:50)
[2017-11-05] MEDS: amLODIPine 5 MG Tab PO SCH (08:26)
[2017-11-05] MEDS: [UNRECOGNIZED DRUG - OTHER] IH SCH (08:26)
[2017-11-05] MEDS: Calcium Carbonate 500 MG Tab.Chew PO SCH ×2 (08:26→17:14)
[2017-11-05] MEDS: VILANTEROL IH SCH (08:26)
[2017-11-05] MEDS: B.Bifidum/B.Longum/L.Acidophilus/L.Rhamnosus (Probiotic) Cap PO SCH ×2 (08:26→21:05)
[2017-11-05] MEDS: Metoprolol Tartrate 25 MG Tab PO SCH ×2 (08:27→21:06)
[2017-11-05] MEDS: Sertraline 50 MG Tab PO SCH (08:28)
[2017-11-05] MEDS: traMADol 50 MG Tab PO PRN ×2 (08:29→21:55)
[2017-11-05] MEDS: Zinc Oxide/Eucerin/Nystatin/Karaya 237 ML JAR TOP SCH ×2 (08:32→21:05)
[2017-11-06] MEDS: Acetaminophen 325 MG Tab PO SCH ×6 (03:32→23:23)
[2017-11-06] MEDS: Albuterol/Ipratropium 3.0-0.5 MG/3 ML Neb Soln NEB SCH (05:56)
[2017-11-06] MEDS: Omeprazole 20 MG Cap.CR PO SCH (07:54)
[2017-11-06] MEDS: Calcium Carbonate 500 MG Tab.Chew PO SCH ×2 (08:12→18:14)
[2017-11-06] MEDS: Zinc Oxide/Eucerin/Nystatin/Karaya 237 ML JAR TOP SCH ×2 (08:13→20:24)
[2017-11-06] MEDS: Metoprolol Tartrate 25 MG Tab PO SCH ×2 (08:14→20:24)
[2017-11-06] MEDS: B.Bifidum/B.Longum/L.Acidophilus/L.Rhamnosus (Probiotic) Cap PO SCH ×2 (08:15→20:25)
[2017-11-06] MEDS: Sertraline 50 MG Tab PO SCH (08:16)
[2017-11-06] MEDS: amLODIPine 5 MG Tab PO SCH (08:17)
[2017-11-06] MEDS: traMADol 50 MG Tab PO PRN ×2 (08:24→20:25)
[2017-11-06] MEDS: [UNRECOGNIZED DRUG - OTHER] IH SCH (08:45)
[2017-11-06] MEDS: VILANTEROL IH SCH (08:45)
[2017-11-06] MEDS: Albuterol/Ipratropium 3.0-0.5 MG/3 ML Neb Soln NEB PRN ×2 (11:25→17:06)
[2017-11-07] MEDS: Acetaminophen 325 MG Tab PO SCH ×2 (03:59→06:41)
[2017-11-07] MEDS: Omeprazole 20 MG Cap.CR PO SCH (07:31)
[2017-11-07] MEDS: Sertraline 50 MG Tab PO SCH (08:40)
[2017-11-07] MEDS: Calcium Carbonate 500 MG Tab.Chew PO SCH ×2 (08:40→18:17)
[2017-11-07] MEDS: B.Bifidum/B.Longum/L.Acidophilus/L.Rhamnosus (Probiotic) Cap PO SCH ×2 (08:40→20:09)
[2017-11-07] MEDS: Zinc Oxide/Eucerin/Nystatin/Karaya 237 ML JAR TOP SCH ×2 (08:40→20:09)
[2017-11-07] MEDS: amLODIPine 5 MG Tab PO SCH (08:41)
[2017-11-07] MEDS: Metoprolol Tartrate 25 MG Tab PO SCH ×2 (08:41→20:09)
[2017-11-07] MEDS: VILANTEROL IH SCH (08:57)
[2017-11-07] MEDS: [UNRECOGNIZED DRUG - OTHER] IH SCH (08:57)
--- NOTE | 2017-11-07 09:58 | PCM.PN ---
- General Info Date of Service: 11/07/17 Functional Status: Reports: Pain Controlled, Tolerating Diet, Ambulating, Urinating, Incentive Spirometry. Denies: New Symptoms - Review of Systems General: Reports: Weakness HEENT: Reports: No Symptoms Pulmonary: Reports: Shortness of Breath. Denies: No Symptoms Cardiovascular: Reports: Dyspnea on Exertion. Denies: Orthopnea, PND, Edema Gastrointestinal: Reports: No Symptoms Genitourinary: Reports: No Symptoms Musculoskeletal: Reports: Back Pain Neurological: Reports: No Symptoms Psychiatric: Reports: Depression - Patient Data Vitals - Most Recent: Last Vital Signs Temp 98.3 F 11/07/17 06:51 Pulse 88 11/07/17 08:57 Resp 16 11/07/17 06:51 BP 119/69 11/07/17 08:41 Pulse Ox 97 11/07/17 08:57 Weight - Most Recent: 115 lb 9 oz I&O - Last 24 Hours: Intake & Output 11/06/17 11/07/17 11/07/17 22:59 06:59 14:59 Intake Total 350 0 Balance 350 0 Med Orders - Current: Current Medications Acetaminophen (Tylenol Extra Strength) 1,000 mg PO TID [facility] Albuterol/Ipratropium (Duoneb 3.0-0.5 Mg/3 Ml) 3 ml NEB Q6HRRT PRN PRN Reason: sob Last Admin: 11/06/17 17:06 Dose: 3 ml Amlodipine Besylate (Norvasc) 10 mg PO DAILY [facility] Last Admin: 11/07/17 08:41 Dose: 10 mg Calcium Carbonate/Glycine (Tums) 500 mg PO BIDMEALS [facility] Last Admin: 11/07/17 08:40 Dose: 500 mg Diphenoxylate HCl/Atropine (Lomotil 0.025-2.5 Mg) 0.5 - 1 tab PO Q2H PRN PRN Reason: Diarrhea Last Admin: 11/03/17 09:11 Dose: 1 tab Lactobacillus Acidophilus/Rhamnosus (Multi-Allison Plus) 1 cap PO BID [facility] Last Admin: 11/07/17 08:40 Dose: 1 cap Metoprolol Tartrate (Lopressor) 37.5 mg PO BID [facility] Last Admin: 11/07/17 08:41 Dose: 37.5 mg Multi-Ingred Cream/Lotion/Oil/Oint (Kmed) 0 ml TOP BID [facility] Last Admin: 11/07/17 08:40 Dose: Not Given Omeprazole (Omeprazole) 20 mg PO ACBREAKFAST [facility] Last Admin: 11/07/17 07:31 Dose: 20 mg Ondansetron HCl (Zofran Odt) 4 mg PO Q4H PRN PRN Reason: Nausea Last Admin: 10/30/17 11:03 Dose: 4 mg Ramelteon (Rozerem) 8 mg PO BEDTIME PRN PRN Reason: Psychosis Sertraline HCl (Zoloft) 100 mg PO DAILY [facility] Last Admin: 11/07/17 08:40 Dose: 100 mg Sodium Chloride (Syrex Flush) 5 ml FLUSH Q8HR PRN PRN Reason: Keep Vein Open Tramadol HCl (Ultram) 50 mg PO TID PRN PRN Reason: Pain Last Admin: 11/06/17 20:25 Dose: 50 mg Triazolam (Triazolam) 0.25 mg PO BEDTIME PRN PRN Reason: INSOMNIA Last Admin: 11/06/17 20:25 Dose: 0.25 mg Discontinued Medications Acetaminophen (Tylenol) 650 mg PO Q4H PRN PRN Reason: pain , fever Last Admin: 10/31/17 09:50 Dose: 650 mg Acetaminophen (Tylenol) 650 mg PO Q4HR [facility] Last Admin: 11/07/17 06:41 Dose: 650 mg Albuterol/Ipratropium (Duoneb 3.0-0.5 Mg/3 Ml) 3 ml NEB Q6HRRT [facility] Last Admin: 11/06/17 05:56 Dose: 3 ml Budesonide (Pulmicort) 0.5 mg INH BIDRT [facility] Last Admin: 10/30/17 07:11 Dose: 0.5 mg Enoxaparin Sodium (Lovenox) 30 mg SUBCUT DAILY [facility] Last Admin: 11/02/17 08:41 Dose: 30 mg Levofloxacin/Dextrose (Levaquin In D5w 250 Mg/50 Ml) 50 mls @ 50 mls/hr IV Q48H [facility] Last Admin: 10/26/17 11:55 Dose: 50 mls/hr Levofloxacin/Dextrose (Levaquin In D5w 500 Mg/100 Ml) 100 mls @ 100 mls/hr IV Q48H [facility] Last Admin: 10/26/17 13:09 Dose: 100 mls/hr Vancomycin HCl 0.75 gm/ Sodium (Chloride) 265 mls @ 212 mls/hr IV Q24H [facility] Last Admin: 11/01/17 13:18 Dose: 212 mls/hr Levofloxacin/Dextrose (Levaquin In D5w 250 Mg/50 Ml) 50 mls @ 50 mls/hr IV Q48H [facility] Last Admin: 11/01/17 16:20 Dose: 50 mls/hr Levofloxacin/Dextrose (Levaquin In D5w 500 Mg/100 Ml) 100 mls @ 100 mls/hr IV Q48H [facility] Last Admin: 11/01/17 15:04 Dose: 100 mls/hr Influenza Virus Vaccine (Fluzone High-Dose ) 180 mcg IM .ONCE ONE Stop: 10/28/17 10:01 Influenza Virus Vaccine (Fluzone High-Dose ) 180 mcg IM .ONCE ONE Stop: 10/27/17 10:01 Last Admin: 10/27/17 11:22 Dose: 180 mcg Potassium Bicarb/Potassium Chloride (Potassium Chloride, Effervescent) 25 meq PO DAILY [facility] Last Admin: 10/30/17 09:49 Dose: 25 meq Prednisone (Prednisone) 5 mg PO DAILY [facility] PRN Reason: Taper Stop: 11/05/17 08:59 Last Admin: 11/04/17 08:46 Dose: 5 mg Vancomycin HCl (Pharmacy To Dose - Vancomycin) 1 dose .XX ASDIRECTED [facility] - Exam Quality Assessment: Supplemental Oxygen General: Alert, Oriented, Cooperative, No Acute Distress Neck: Supple Lungs: Decreased Breath Sounds, Crackles. No: Rales, Rhonchi Cardiovascular: Regular Rate, Regular Rhythm GI/Abdominal Exam: No Distention (Female) Exam: Deferred Back Exam: No: CVA Tenderness (L), CVA Tenderness (R) Extremities: No Pedal Edema Skin: Warm, Dry, Intact Neurological: No New Focal Deficit Psy/Mental Status: Alert, Normal Affect, Normal Mood - Problem List Review Problem List Initiated/Reviewed/Updated: Yes - My Orders Last 24 Hours: My Active Orders 11/06/17 11:00 Albuterol/Ipratropium [DuoNeb 3.0-0.5 MG/3 ML] 3 ml NEB Q6HRRT PRN 11/07/17 14:00 Acetaminophen [Tylenol Extra Strength] 1,000 mg PO TID - Plan Plan:: HISTORY OF PRESENT ILLNESS Very pleasant 87-year-old female with long-standing history of end-stage emphysema was initially admitted into acute care status due exacerbation of her up truck to pulmonary disease concomittent pneumonia. She was started on IV antibiotics, increase oxygen with aggressive pulmonary toileting and has slowly made progress however due to decreased strength and endurance with multiple disease processes and her extreme decreased strength with experiencing shortness of breath she has been placed in swing bed therapy. The patient's PMI significant for panlobular emphysema, oxygen dependent, HTN, HLD, anxiety and depression, GERD, osteoporosis, macular degeneration, and breast cancer with left mastectomy. The patient lives alone, but reports she has children that check on her frequently. Her son Jimmy is concerned about her needing to go to either assisted living or long-term care however patient is adamant about eventually returning to her own home. Her initial workup in the ED on acute care demonstrated RLL pneumonia with an elevated white blood cell count. New symptoms, patient with ongoing back pain, we'll change to Tylenol arthritis to 1 g scheduled 3 times a day Primary Impression Debilitation, weakness. Physical therapy, has been doing well with physical therapy. Still not optimal regarding functionality. Patient improving quite significantly however discussion with PT this morning could use a few more days. Patient strongly desires to go home however family is leaning more toward assisted living Pneumonia, CAP, POA, resolved. Panlobular emphysema with acute exacerbation, clinically improving. Duo nebs now as needed, back on Breo Ellipta (ICS/LABA) Chronic 02 therapy. RT, Chronic O2 CODE STATUS, DO NOT RESUSCITATE SECONDARY ASSESSMENT/PLAN: Hypertension. Continue norvasc. Lopressor adjusted as above. History of hyperlipidemia. diet controlled, LDL 89 (2014). Anxiety and depression. Continue zoloft. Recent news of son with cancer main caregiver GERD. IV protonix. History of osteoporosis. Macular degeneration. History of breast cancer, s/p left mastectomy. Chronic low back pain. Change to Tylenol with arthritis scheduled Diffuse DJD/osteoarthritis. Tramadol PRN. Insomnia, primary. Continue triazolam PRN. Overall plan discharge planning, change to Tylenol arthritis scheduled 3 times a day, now on as needed duo nebs with home Breo Ellipta, continue with PT few more days. Patient doing quite well, son who was recently diagnosed with CA desires patient for assisted living however patient desires to be released to home with home health and PT. patient is high risk for readmission due to comorbid condition and end-stage COPD.
[2017-11-07] MEDS: traMADol 50 MG Tab PO PRN ×2 (12:05→20:10)
[2017-11-07] MEDS: Acetaminophen 500 MG Tab PO SCH ×2 (13:34→20:09)
[2017-11-08] MEDS: traMADol 50 MG Tab PO PRN (07:41)
[2017-11-08] MEDS: Omeprazole 20 MG Cap.CR PO SCH (07:41)
[2017-11-08] MEDS: B.Bifidum/B.Longum/L.Acidophilus/L.Rhamnosus (Probiotic) Cap PO SCH ×2 (08:26→21:08)
[2017-11-08] MEDS: Calcium Carbonate 500 MG Tab.Chew PO SCH ×2 (08:26→17:43)
[2017-11-08] MEDS: Sertraline 50 MG Tab PO SCH (08:27)
[2017-11-08] MEDS: amLODIPine 5 MG Tab PO SCH (08:27)
[2017-11-08] MEDS: Metoprolol Tartrate 25 MG Tab PO SCH ×2 (08:28→21:09)
[2017-11-08] MEDS: Acetaminophen 500 MG Tab PO SCH ×3 (08:28→21:08)
[2017-11-08] MEDS: Zinc Oxide/Eucerin/Nystatin/Karaya 237 ML JAR TOP SCH ×2 (08:29→21:14)
[2017-11-08] MEDS: VILANTEROL IH SCH (08:58)
[2017-11-08] MEDS: FLUTICASONE IH SCH (08:58)
[2017-11-08] MEDS: Atropine/Diphenoxylate 0.025-2.5 MG Tab PO PRN (12:54)
[2017-11-09] MEDS: Omeprazole 20 MG Cap.CR PO SCH (07:26)
[2017-11-09] MEDS: traMADol 50 MG Tab PO PRN ×2 (08:07→17:44)
[2017-11-09] MEDS: B.Bifidum/B.Longum/L.Acidophilus/L.Rhamnosus (Probiotic) Cap PO SCH ×2 (08:07→20:31)
[2017-11-09] MEDS: Acetaminophen 500 MG Tab PO SCH ×3 (08:07→20:31)
[2017-11-09] MEDS: Metoprolol Tartrate 25 MG Tab PO SCH ×2 (08:08→20:31)
[2017-11-09] MEDS: amLODIPine 5 MG Tab PO SCH (08:08)
[2017-11-09] MEDS: Sertraline 50 MG Tab PO SCH (08:09)
[2017-11-09] MEDS: Zinc Oxide/Eucerin/Nystatin/Karaya 237 ML JAR TOP SCH ×2 (08:10→20:34)
[2017-11-09] MEDS: Calcium Carbonate 500 MG Tab.Chew PO SCH ×2 (08:10→17:40)
[2017-11-09] MEDS: FLUTICASONE IH SCH (08:32)
[2017-11-09] MEDS: VILANTEROL IH SCH (08:32)
[2017-11-10] MEDS: Omeprazole 20 MG Cap.CR PO SCH (07:27)
[2017-11-10] MEDS: traMADol 50 MG Tab PO PRN ×3 (07:29→20:27)
[2017-11-10] MEDS: Calcium Carbonate 500 MG Tab.Chew PO SCH ×2 (08:05→17:59)
[2017-11-10] MEDS: B.Bifidum/B.Longum/L.Acidophilus/L.Rhamnosus (Probiotic) Cap PO SCH ×2 (08:05→20:27)
[2017-11-10] MEDS: Acetaminophen 500 MG Tab PO SCH ×3 (08:06→20:29)
[2017-11-10] MEDS: amLODIPine 5 MG Tab PO SCH (08:07)
[2017-11-10] MEDS: Metoprolol Tartrate 25 MG Tab PO SCH ×2 (08:08→20:27)
[2017-11-10] MEDS: Sertraline 50 MG Tab PO SCH (08:08)
[2017-11-10] MEDS: VILANTEROL IH SCH (08:56)
[2017-11-10] MEDS: FLUTICASONE IH SCH (08:56)
[2017-11-10] MEDS: Zinc Oxide/Eucerin/Nystatin/Karaya 237 ML JAR TOP SCH ×2 (09:33→20:27)
[2017-11-11] MEDS: Omeprazole 20 MG Cap.CR PO SCH (08:07)
[2017-11-11] MEDS: Calcium Carbonate 500 MG Tab.Chew PO SCH ×2 (08:07→18:37)
[2017-11-11] MEDS: VILANTEROL IH SCH (08:07)
[2017-11-11] MEDS: FLUTICASONE IH SCH (08:07)
[2017-11-11] MEDS: Metoprolol Tartrate 25 MG Tab PO SCH ×2 (08:08→20:45)
[2017-11-11] MEDS: amLODIPine 5 MG Tab PO SCH (08:09)
[2017-11-11] MEDS: B.Bifidum/B.Longum/L.Acidophilus/L.Rhamnosus (Probiotic) Cap PO SCH ×2 (08:09→20:45)
[2017-11-11] MEDS: Acetaminophen 500 MG Tab PO SCH ×3 (08:10→20:45)
[2017-11-11] MEDS: Sertraline 50 MG Tab PO SCH (08:11)
[2017-11-11] MEDS: Zinc Oxide/Eucerin/Nystatin/Karaya 237 ML JAR TOP SCH ×2 (08:13→20:45)
[2017-11-11] MEDS: Atropine/Diphenoxylate 0.025-2.5 MG Tab PO PRN (20:44)
[2017-11-11] MEDS: traMADol 50 MG Tab PO PRN (20:45)
[2017-11-12] MEDS: Acetaminophen 500 MG Tab PO SCH ×3 (08:17→20:24)
[2017-11-12] MEDS: Omeprazole 20 MG Cap.CR PO SCH (08:18)
[2017-11-12] MEDS: B.Bifidum/B.Longum/L.Acidophilus/L.Rhamnosus (Probiotic) Cap PO SCH ×2 (08:18→20:24)
[2017-11-12] MEDS: Sertraline 50 MG Tab PO SCH (08:18)
[2017-11-12] MEDS: Metoprolol Tartrate 25 MG Tab PO SCH ×2 (08:18→20:24)
[2017-11-12] MEDS: Calcium Carbonate 500 MG Tab.Chew PO SCH ×2 (08:18→18:25)
[2017-11-12] MEDS: amLODIPine 5 MG Tab PO SCH (08:18)
[2017-11-12] MEDS: FLUTICASONE IH SCH (08:22)
[2017-11-12] MEDS: VILANTEROL IH SCH (08:22)
[2017-11-12] MEDS: Zinc Oxide/Eucerin/Nystatin/Karaya 237 ML JAR TOP SCH ×2 (09:03→20:24)
[2017-11-12] MEDS: traMADol 50 MG Tab PO PRN ×2 (11:45→20:24)
[2017-11-13] MEDS: Zinc Oxide/Eucerin/Nystatin/Karaya 237 ML JAR TOP SCH ×2 (08:02→20:30)
[2017-11-13] MEDS: Metoprolol Tartrate 25 MG Tab PO SCH ×2 (08:02→20:28)
[2017-11-13] MEDS: Omeprazole 20 MG Cap.CR PO SCH (08:02)
[2017-11-13] MEDS: Calcium Carbonate 500 MG Tab.Chew PO SCH ×2 (08:02→17:57)
[2017-11-13] MEDS: Sertraline 50 MG Tab PO SCH (08:04)
[2017-11-13] MEDS: B.Bifidum/B.Longum/L.Acidophilus/L.Rhamnosus (Probiotic) Cap PO SCH ×2 (08:04→20:28)
[2017-11-13] MEDS: amLODIPine 5 MG Tab PO SCH (08:04)
[2017-11-13] MEDS: Acetaminophen 500 MG Tab PO SCH ×3 (08:06→20:29)
[2017-11-13] MEDS: FLUTICASONE IH SCH (08:28)
[2017-11-13] MEDS: VILANTEROL IH SCH (08:28)
[2017-11-13] MEDS: traMADol 50 MG Tab PO PRN (14:59)
[2017-11-14] MEDS: Omeprazole 20 MG Cap.CR PO SCH (07:53)
[2017-11-14] MEDS: FLUTICASONE IH SCH (08:34)
[2017-11-14] MEDS: VILANTEROL IH SCH (08:34)
[2017-11-14] MEDS: amLODIPine 5 MG Tab PO SCH (08:48)
[2017-11-14] MEDS: Metoprolol Tartrate 25 MG Tab PO SCH ×2 (08:49→20:26)
[2017-11-14] MEDS: Zinc Oxide/Eucerin/Nystatin/Karaya 237 ML JAR TOP SCH ×2 (08:49→20:26)
[2017-11-14] MEDS: Sertraline 50 MG Tab PO SCH (08:50)
[2017-11-14] MEDS: Calcium Carbonate 500 MG Tab.Chew PO SCH ×2 (08:50→18:01)
[2017-11-14] MEDS: B.Bifidum/B.Longum/L.Acidophilus/L.Rhamnosus (Probiotic) Cap PO SCH ×2 (08:50→20:27)
[2017-11-14] MEDS: Acetaminophen 500 MG Tab PO SCH ×3 (08:50→20:27)
--- NOTE | 2017-11-14 09:20 | PCM.PN ---
- General Info Date of Service: 11/13/17 Functional Status: Reports: Pain Controlled, Tolerating Diet, Ambulating, Urinating, Incentive Spirometry. Denies: New Symptoms - Review of Systems General: Reports: Appetite. Denies: Fever, Fatigue, Malaise HEENT: Reports: No Symptoms Pulmonary: Denies: Shortness of Breath, Cough, Sputum, Hemoptysis, Wheezing Cardiovascular: Reports: Dyspnea on Exertion. Denies: Orthopnea, PND Gastrointestinal: Reports: No Symptoms Genitourinary: Reports: No Symptoms Musculoskeletal: Reports: Back Pain (is taking Less Ultram) Skin: Reports: No Symptoms Neurological: Reports: Weakness Psychiatric: Reports: Mood Lability (desires to go home) - Patient Data Vitals - Most Recent: Last Vital Signs Temp 98.8 F 11/14/17 05:45 Pulse 77 11/14/17 08:49 Resp 20 11/14/17 05:45 BP 140/72 11/14/17 08:49 Pulse Ox 98 11/14/17 05:45 Weight - Most Recent: 114 lb 1 oz I&O - Last 24 Hours: Intake & Output 11/13/17 11/14/17 11/14/17 22:59 06:59 14:59 Intake Total 855 50 Balance 855 50 Med Orders - Current: Current Medications Acetaminophen (Tylenol Extra Strength) 1,000 mg PO TID [facility] Last Admin: 11/14/17 08:50 Dose: 1,000 mg Albuterol/Ipratropium (Duoneb 3.0-0.5 Mg/3 Ml) 3 ml NEB Q6HRRT PRN PRN Reason: sob Last Admin: 11/06/17 17:06 Dose: 3 ml Amlodipine Besylate (Norvasc) 10 mg PO DAILY [facility] Last Admin: 11/14/17 08:48 Dose: 10 mg Calcium Carbonate/Glycine (Tums) 500 mg PO BIDMEALS [facility] Last Admin: 11/14/17 08:50 Dose: 500 mg Diphenoxylate HCl/Atropine (Lomotil 0.025-2.5 Mg) 0.5 - 1 tab PO Q2H PRN PRN Reason: Diarrhea Last Admin: 11/11/17 20:44 Dose: 1 tab Lactobacillus Acidophilus/Rhamnosus (Multi-Allison Plus) 1 cap PO BID [facility] Last Admin: 11/14/17 08:50 Dose: 1 cap Metoprolol Tartrate (Lopressor) 37.5 mg PO BID [facility] Last Admin: 11/14/17 08:49 Dose: 37.5 mg Multi-Ingred Cream/Lotion/Oil/Oint (Kmed) 0 ml TOP BID [facility] Last Admin: 11/14/17 08:49 Dose: Not Given Omeprazole (Omeprazole) 20 mg PO ACBREAKFAST [facility] Last Admin: 11/14/17 07:53 Dose: 20 mg Ondansetron HCl (Zofran Odt) 4 mg PO Q4H PRN PRN Reason: Nausea Last Admin: 10/30/17 11:03 Dose: 4 mg Ramelteon (Rozerem) 8 mg PO BEDTIME PRN PRN Reason: Psychosis Sertraline HCl (Zoloft) 100 mg PO DAILY [facility] Last Admin: 11/14/17 08:50 Dose: 100 mg Sodium Chloride (Syrex Flush) 5 ml FLUSH Q8HR PRN PRN Reason: Keep Vein Open Tramadol HCl (Ultram) 50 mg PO TID PRN PRN Reason: Pain Last Admin: 11/13/17 14:59 Dose: 50 mg Triazolam (Triazolam) 0.25 mg PO BEDTIME PRN PRN Reason: INSOMNIA Last Admin: 11/13/17 20:29 Dose: 0.25 mg Discontinued Medications Acetaminophen (Tylenol) 650 mg PO Q4H PRN PRN Reason: pain , fever Last Admin: 10/31/17 09:50 Dose: 650 mg Acetaminophen (Tylenol) 650 mg PO Q4HR [facility] Last Admin: 11/07/17 06:41 Dose: 650 mg Albuterol/Ipratropium (Duoneb 3.0-0.5 Mg/3 Ml) 3 ml NEB Q6HRRT [facility] Last Admin: 11/06/17 05:56 Dose: 3 ml Budesonide (Pulmicort) 0.5 mg INH BIDRT [facility] Last Admin: 10/30/17 07:11 Dose: 0.5 mg Enoxaparin Sodium (Lovenox) 30 mg SUBCUT DAILY [facility] Last Admin: 11/02/17 08:41 Dose: 30 mg Levofloxacin/Dextrose (Levaquin In D5w 250 Mg/50 Ml) 50 mls @ 50 mls/hr IV Q48H [facility] Last Admin: 10/26/17 11:55 Dose: 50 mls/hr Levofloxacin/Dextrose (Levaquin In D5w 500 Mg/100 Ml) 100 mls @ 100 mls/hr IV Q48H [facility] Last Admin: 10/26/17 13:09 Dose: 100 mls/hr Vancomycin HCl 0.75 gm/ Sodium (Chloride) 265 mls @ 212 mls/hr IV Q24H [facility] Last Admin: 11/01/17 13:18 Dose: 212 mls/hr Levofloxacin/Dextrose (Levaquin In D5w 250 Mg/50 Ml) 50 mls @ 50 mls/hr IV Q48H [facility] Last Admin: 11/01/17 16:20 Dose: 50 mls/hr Levofloxacin/Dextrose (Levaquin In D5w 500 Mg/100 Ml) 100 mls @ 100 mls/hr IV Q48H [facility] Last Admin: 11/01/17 15:04 Dose: 100 mls/hr Influenza Virus Vaccine (Fluzone High-Dose ) 180 mcg IM .ONCE ONE Stop: 10/28/17 10:01 Influenza Virus Vaccine (Fluzone High-Dose ) 180 mcg IM .ONCE ONE Stop: 10/27/17 10:01 Last Admin: 10/27/17 11:22 Dose: 180 mcg Potassium Bicarb/Potassium Chloride (Potassium Chloride, Effervescent) 25 meq PO DAILY [facility] Last Admin: 10/30/17 09:49 Dose: 25 meq Prednisone (Prednisone) 5 mg PO DAILY [facility] PRN Reason: Taper Stop: 11/05/17 08:59 Last Admin: 11/04/17 08:46 Dose: 5 mg Vancomycin HCl (Pharmacy To Dose - Vancomycin) 1 dose .XX ASDIRECTED [facility] - Exam Quality Assessment: Supplemental Oxygen General: Alert, Oriented Neck: Supple Lungs: Decreased Breath Sounds. No: Crackles, Rales Cardiovascular: Regular Rate, Regular Rhythm GI/Abdominal Exam: Normal Bowel Sounds, Soft, Non-Tender, No Organomegaly, No Distention, No Abnormal Bruit, No Mass, Pelvis Stable Back Exam: No: CVA Tenderness (L), CVA Tenderness (R) Extremities: No Pedal Edema Peripheral Pulses: 2+: Radial (L), Radial (R) Neurological: No New Focal Deficit - Problem List Review Problem List Initiated/Reviewed/Updated: Yes - Plan Plan:: HISTORY OF PRESENT ILLNESS Very pleasant 87-year-old female with long-standing history of end-stage emphysema was initially admitted into acute care status due exacerbation of her up truck to pulmonary disease concomittent pneumonia. She was started on IV antibiotics, increase oxygen with aggressive pulmonary toileting and has slowly made progress however due to decreased strength and endurance with multiple disease processes and her extreme decreased strength with experiencing shortness of breath she has been placed in swing bed therapy. The patient's PMI significant for panlobular emphysema, oxygen dependent, HTN, HLD, anxiety and depression, GERD, osteoporosis, macular degeneration, and breast cancer with left mastectomy. The patient lives alone, but reports she has children that check on her frequently. Her son Jimmy is concerned about her needing to go to either assisted living or long-term care however patient is adamant about eventually returning to her own home. Her initial workup in the ED on acute care demonstrated RLL pneumonia with an elevated white blood cell count. Primary Impression Debilitation, weakness. Physical therapy, has been doing well with physical therapy. Nearing her optimal state. Patient improving quite significantly. Likely will be DC in a day or so. Patient strongly desires to go home however family is leaning more toward assisted living Pneumonia, CAP, POA, resolved. Panlobular emphysema with acute exacerbation, clinically improving. Duo nebs now as needed, back on Breo Ellipta (ICS/LABA) Chronic 02 therapy. RT, Chronic O2 CODE STATUS, DO NOT RESUSCITATE SECONDARY ASSESSMENT/PLAN: Hypertension. Continue norvasc. Lopressor adjusted as above. History of hyperlipidemia. diet controlled, LDL 89 (2015). Anxiety and depression. Continue zoloft. GERD. IV protonix. History of osteoporosis. Macular degeneration. History of breast cancer, s/p left mastectomy. Chronic low back pain. Change to Tylenol with arthritis scheduled, using less Ultram. Diffuse DJD/osteoarthritis. Tramadol PRN. Insomnia, primary. Continue triazolam PRN. Overall plan discharge planning, likely could be discharged tomorrow. Long discussion with patient, and granddaughter regarding home situation not ideal would be best for her to be placed in rehabilitation long-term care at least for a few weeks to a few months in order for her home situation to improve as I feel she needs more assistance. Patient seems more receptive to this today. Patient is high risk for readmission due to comorbidities and poor lung function end-stage emphysema. On discharge, reduce her Ultam to BID PRN, continue scheduled Tylenol. as needed duo nebs with home [place] [facility].
[2017-11-14] MEDS: traMADol 50 MG Tab PO PRN ×2 (12:31→18:05)
[2017-11-15 06:45] VITALS: BP 115/70
[2017-11-15] MEDS: Omeprazole 20 MG Cap.CR PO SCH (08:04)
[2017-11-15] MEDS: Acetaminophen 500 MG Tab PO SCH (08:04)
[2017-11-15] MEDS: Calcium Carbonate 500 MG Tab.Chew PO SCH (08:05)
[2017-11-15] MEDS: Sertraline 50 MG Tab PO SCH (08:05)
[2017-11-15] MEDS: Zinc Oxide/Eucerin/Nystatin/Karaya 237 ML JAR TOP SCH (08:06)
[2017-11-15] MEDS: amLODIPine 5 MG Tab PO SCH (08:07)
[2017-11-15] MEDS: Metoprolol Tartrate 25 MG Tab PO SCH (08:07)
[2017-11-15] MEDS: B.Bifidum/B.Longum/L.Acidophilus/L.Rhamnosus (Probiotic) Cap PO SCH (08:08)
[2017-11-15] MEDS: VILANTEROL IH SCH (08:40)
[2017-11-15] MEDS: FLUTICASONE IH SCH (08:40)
[2017-11-15] MEDS ORDERED: LORazepam 0.5 MG Tab PO ONE (09:02)
[2017-11-15] MEDS: traMADol 50 MG Tab PO PRN (09:19)
--- NOTE | 2017-11-16 08:27 | DISCH ---
The patient was admitted initially in the inpatient on 10/21, switched to swing bed on 10/26/2017 and discharged today, 11/15. FINAL DIAGNOSES: Debilitation and weakness, much improved; pneumonia, community- acquired, present on admission, resolved; panlobular emphysema with acute exacerbation, now resolved; chronic oxygen therapy. SECONDARY FINAL DIAGNOSES: Hypertension, controlled on Norvasc and Lopressor; hyperlipidemia, diet controlled; anxiety and depression, she is on Zoloft; gastroesophageal reflux disease, on PPI therapy; history of osteoporosis; macular degeneration; history of breast cancer with status post left mastectomy; chronic low back pain, seems to be improved with scheduled Tylenol and decreased Ultram; does have diffuse degenerative joint disease and osteoarthritis; also insomnia, primary, she is on triazolam as needed. HISTORY: An 87-year-old female, longstanding history of end-stage emphysema on chronic oxygen. She was initially admitted in acute care status due to an exacerbation. She also had a concomitant pneumonia on admission. She was initially on IV antibiotics, increased oxygen needs with aggressive pulmonary toileting. She had slowly made progress to her acute stay, however, she became quite debilitated and quite weak with the increased oxygen needs, so she was eventually placed into swing bed therapy, which she slowly has improved in her overall ADL; however, she required significant family members to care for her and her son, Jimmy, who was recently diagnosed with illness, and so there were less people to care for her, so she was transferred to a long-term care center today. HOSPITAL COURSE: Her swing bed hospital course went well. She worked with physical therapy and respiratory therapy. She improved. Her pneumonia resolved. She has less oxygen requirements. However, she does continue with chronic oxygen. She had no fever, no hemodynamic instability. She worked with physical therapy, slowly gain back most of her functionality with ADLs; however, still requires needs and assistance. She was eventually started back on her Breo Ellipta. Her Pulmicort was discontinued. She was switched her back to a DuoNeb p.r.n. Her respiratory status has much improved. PHYSICAL EXAMINATION: Vital signs on discharge: Temperature 98.2, heart rate 92, O2 sats 93%. She is on 2.5 L. LABORATORY DATA: Recent labs, on November 03; sodium, potassium, BUN, and creatinine normal. Estimated GFR 55, calcium 9.2. Pharmacy did monitor vancomycin trough and dosing. MEDICATIONS: The patient was placed on schedule Tylenol 1 g t.i.d., also Ultram was reduced from 3 tablets of 50 mg down to b.i.d. p.r.n. Pulmicort discontinued, started back on her Breo Ellipta. The patient can continue on all other home medications. DISPOSITION: The patient will be transferred to long-term care [place]. She does have a fairly good prognosis of being eventually discharged depending on her PT and OT status requiring a long discussion with the patient. /[id number]/MODL
== END 2017-11-15 10:45 | DRG 947 ==
LOC: KA.MS 10:47
PROVIDERS: ADMIT Nurse Practitioner Family; ATTEND Nurse Practitioner Family
DX: R53.1 Weakness (principal); J18.9 Pneumonia, unspecified organism; J43.1 Panlobular emphysema; I10 Essential (primary) hypertension; E78.5 Hyperlipidemia, unspecified; F41.8 Other specified anxiety disorders; K21.9 Gastro-esophageal reflux disease without esophagitis; M54.5 Low back pain; G89.29 Other chronic pain; R19.7 Diarrhea, unspecified; M19.90 Unspecified osteoarthritis, unspecified site; F17.210 Nicotine dependence, cigarettes, uncomplicated; Z85.3 Personal history of malignant neoplasm of breast; Z90.12 Acquired absence of left breast and nipple; Z79.899 Other long term (current) drug therapy; Z99.81 Dependence on supplemental oxygen; Z88.8 Allergy status to other drugs, medicaments and biological substances; Z91.041 Radiographic dye allergy status; D47.3 Essential (hemorrhagic) thrombocythemia; R74.8 Abnormal levels of other serum enzymes; E87.6 Hypokalemia; R11.0 Nausea; E86.0 Dehydration; R73.9 Hyperglycemia, unspecified; Z79.52 Long term (current) use of systemic steroids; Z66 Do not resuscitate; Z23 Encounter for immunization
CPT/HCPCS: 36415; 71046; 80048; 80202; 82565; 85025; 90662; 94640; 94640-76; 97110-GP; 97162-GP; 97537-GP; A9270-GY; G0008; J1650; J1956; J3370; J7050